=== PATIENT | female | born 1960 | race Caucasian/White ===

== ENCOUNTER → 2018-03-14 12:08 | Outpatient (CLI) | payer MEDICAID, SELFPAY ==
--- NOTE | 2018-03-14 12:12 | RAD_ITS ---
STUDY: X-RAY - LUMBAR SPINE REASON FOR EXAM: Female, 57 years old. Back pain. TECHNIQUE: 5 view(s) of the lumbar spine were obtained. COMPARISON: None FINDINGS: Alignment is normal. No evidence of an acute fracture. Mild anterior wedging T10, T11 and T12 which are probably old. Disc space narrowing L3-4 and L4-5. Facet hypertrophy L4-5 and L5-S1. Small marginal osteophytes at multiple levels in the lower lumbar spine. Laminectomies at multiple levels in the lower lumbar spine. Surgical clips right upper quadrant. Lobulated 1.7 x 1.1 cm calcification right lower quadrant possibly representing a right renal calculus. RAD/L/S Spine Min 4 Views IMPRESSION: Multilevel degenerative and postoperative changes of the lower lumbar spine. Possible 1.7 cm right renal calculus. Electronically Signed: Morris Suarez MD at 7:01 EDT , Service support ,
== END ==
PROVIDERS: Family Provider Family Medicine; PCP Family Medicine; Referring Provider Family Medicine; Visit Provider Family Medicine
DX: M54.41 Lumbago with sciatica, right side (principal); G89.29 Other chronic pain
CPT/HCPCS: 72110

== ENCOUNTER → 2018-08-22 06:17 | Outpatient (CLI) | payer MEDICAID, SELFPAY ==
--- NOTE | 2018-08-22 12:30 | NEURO ---
NCS and/or EMG Patient Report Ordering Doctor: Veronica Gomez DATE OF SERVICE: 08/22/18 Maryjane Atkinson is a 57-year-old female presents for electrodiagnostic testing of the right lower limb. She has complaints of low back pain with radiation into the right leg. She reports numbness and tingling. Electrodiagnostic findings: Right peroneal motor nerve temperature is normal distal latency, amplitude and conduction velocity. Normal right tibial motor response. Normal right tibial and peroneal F-wave. H reflex normal bilaterally. Sensory responses are within normal limits. Needle EMG testing shows no evidence of denervation in any muscles tested. Motor unit action potentials are of normal amplitude and duration. Electrodiagnostic impression: This is a normal electrodiagnostic study of the right lower limb. There is no electrodiagnostic evidence for peripheral neuropathy or lumbosacral radiculopathy. If there are any further questions, please do not hesitate to contact me.
== END ==
PROVIDERS: Family Provider Family Medicine; PCP Family Medicine; Referring Provider Family Medicine; Visit Provider Family Medicine
DX: M54.41 Lumbago with sciatica, right side (principal); G89.29 Other chronic pain
CPT/HCPCS: 95886; 95910

== ENCOUNTER 2019-01-09 09:38 | Observation (INO) | payer MEDICAID, SELFPAY ==
[2019-01-09 09:40] VITALS: BP 116/75; PULSE 107; RESP 18; TEMP 36.9; O2SAT 97; BMI 19.0
--- NOTE | 2019-01-09 09:50 | CT_ITS ---
STUDY: CT ABDOMEN AND PELVIS WITH CONTRAST REASON FOR EXAM: Female, 58 years old. Recent colonoscopy. Weakness and chills and pain. RADIATION DOSAGE (If Supplied By Facility): CTDIvol = ( 9.61 ) mGy, DLP = ( 290.04 ) mGycm TECHNIQUE: Transaxial images were obtained from the dome of the diaphragm to the symphysis pubis with oral contrast. 100ML IV/Oral Isovue 300 was administered. Sagittal and coronal images were reconstructed. Individualized dose optimization techniques were used for this CT. COMPARISON: None. FINDINGS: Increased markings at the lung bases suggesting bibasilar atelectasis. The visualized portions of the heart are within normal limits. Scattered small hepatic cysts. There is a 1.5 cm x 1.4 cm rounded calcification in the lower aspect of the liver. This may represent a retained gallstone during cholecystectomy. Normal gallbladder and extrahepatic biliary system. Normal spleen. Normal pancreas. There is a small, circumscribed, smooth, low attenuation left adrenal mass, consistent with an adrenal adenoma. This measures 1.3 cm. Normal right adrenal gland. Normal right kidney. There is a 7.6 cm x 6.4 cm cyst in the upper pole of the left kidney. There is also evidence of a 2.4 cm x 2.3 cm cyst along the anterior lateral aspect of the left kidney. There is a small hiatal hernia. Gastric wall thickening suggestive of gastritis. Normal small intestine. Diffuse circumferential wall thickening of the left hemicolon suggestive of a colitis with increased markings in the surrounding peritoneal fat. There are surgical clips in the region of the appendix consistent with a prior appendectomy. Normal abdominal aorta. Normal inferior vena cava. Normal retroperitoneum. Normal urinary bladder. There is absence of the uterus consistent with a prior hysterectomy. Normal abdominal wall. There are diffuse degenerative changes of the visualized lumbar spine. CT/Abdomen/Pelvis WITH Contrast IMPRESSION: Findings suggestive of gastritis as well as colitis of the left hemicolon are Status post cholecystectomy with the findings suggestive of debris retained gallstone in the right upper quadrant. Bibasilar atelectasis. Electronically Signed: Nayan Ross, at 12:21 EDT , Service support ,
[2019-01-09] MEDS: Ondansetron 4 MG/2 ML Vial IV (10:11)
[2019-01-09] MEDS: HYDROmorphone 1 MG/ML Syringe IV ×3 (10:11→22:36)
[2019-01-09] MEDS: 0.9% Normal Saline 1,000 ML 1000 ML IV (10:12)
--- NOTE | 2019-01-09 10:12 | ED.VISSUMM ---
- ER Visit Summary Date of Service: 01/09/19 Chief Complaint: Abdominal pain History of Present Illness: The patient is a 58 F with diffuse abdominal pain. She had a colonoscopy yesterday by Dr. Nickerson at . This was a screening colonoscopy, her second. One polyp was removed. She had no further issues other than waking up once during anesthesia. Today she reports increased and diffuse abdominal pain. She is not passing bowel movements or gas. She feels achy and has a headache. Denies vomiting. Denies fever, but she feels hot and has chills. Physical Examination: Afebrile and vital signs unremarkable except for heart rate 107. Heart regular. Lungs clear. Abdomen diffusely tender. No guarding or rebound. Mild distention. Skin appears normal. Test Results: Labs, urinalysis, CT pending. Emergency Department Course and Treatment: Patient treated with Dilaudid, Zofran, and fluids while awaiting results of the imaging and laboratory studies. White count 24.9. The remainder of her blood work was all fairly unremarkable. Cultures are pending. CT showed findings concerning for gastritis and colitis as well as postoperative changes. No perforation noted. Patient was discussed with Dr. Nickerson. He did not expect these findings. He suggested that she may have some irritation from the bowel prep. He said the colonoscopy was uneventful. She had 2 small polyps and he did not anticipate any complications from the removal. He advised Cipro and Betsey. He would follow-up with the patient has an outpatient. I reevaluated the patient. She had continued pain and was not passing gas. He said that she could be admitted here for antibiotics and pain meds if we thought it was appropriate. I spoke with the hospitalist who will admit for further care. Treatment Plan: As above Disposition: Admit Impression: 1. Colitis 2. Leukocytosis This note was generated with [employer] dictation software. It may contain incorrect words, spelling, and punctuation that were not noted in review of the chart prior to signing ED Disposition - Plan for ED Patient: Referrals: Veronica Gomez DO [Primary Care Provider] -
[2019-01-09 10:21] VITALS: BP 116/75; PULSE 107; RESP 18; TEMP 36.9; O2SAT 97
[2019-01-09 10:23] LABS: Bacteria 0 SEEN /hpf (None Seen); Mucous, Urine 0 SEEN /hpf (<or=2+); Red Blood Cells-Urine 0 SEEN /hpf (0-5)
[2019-01-09 10:34] LABS: Absolute Lymphocyte Count 1.29 X10^3/uL (0.83-4.51); Absolute Neutrophil Count 22.1 X10^3/uL (2.0-7.7); Basophil# 0.05 X10^3/uL; Basophil% 0.2 % (0-1); Eosinophil# 0.01 X10^3/uL; Hemoglobin 13.7 g/dL (12.0-15.0); Lymphocyte # 1.29 X10^3/ul (4.0); Lymphocyte % 5.2 % (19-41); Mean Corp Hgb Conc 34.3 g/dL (32-36); Mean Corpuscular Hgb 31.2 pg (27.0-32.0); Mean Corpuscular Volume 91.1 fL (81-99); Monocyte# 1.36 X10^3/uL; Monocyte% 5.5 % (0-10); NRBC Flagged by Analyzer 0 % (0-5); Neutrophil # 22.06 X10^3/uL (2.7-7.7); Neutrophil % 88.5 % (47-70); POSITIVE DIFFERENTIAL YES; Platelet Count 253 K/mm3 (150-450); RBC Distribution Width CV 13.2 % (11.6-14.6); RBC Distribution Width SD 44.7 fl (35.1-43.9); Red Blood Count 4.39 M/mm3 (4.2-5.4); White Blood Count 24.9 K/mm3 (4.4-11.0)
[2019-01-09 10:34] LABS: Color, Urine Yellow (Yellow); Glucose, Dipstick Normal (Normal); Ketone-Dipstick Negative (Negative); Leukocyte Esterase-Dipstick 25 /ul (Negative); Nitrite-Dipstick Negative (Negative); Occult Blood-Urine 10 /ul (Negative); Protein-Dipstick 30 mg/dl (Negative); Specific Gravity, Urine 1.015 (1.002-1.030); Urine Bilirubin Dipstick Negative (Negative); Urine Clarity Clear (Clear); Urine Urobilinogen Normal (Normal)
[2019-01-09 10:37] LABS: ALB/GLOB Ratio 0.9 RATIO (0.9-2.4); AST(SGOT) 14 U/L (15-37); Alanine Aminotransfer ALT/SGPT 17 U/L (13-56); Albumin, Serum 3.2 g/dL (3.2-5.0); Alkaline Phosphatase 73 U/L (45-117); Anion Gap 6 (5-15); BUN 10 mg/dL (7-18); BUN/Creat Ratio 17.3 RATIO (10-20); Calcium,Total 8.8 mg/dL (8.5-10.1); Chloride 113 mmol/L (98-107); Creatinine, Serum 0.58 mg/dL (0.55-1.02); Differential Indicated SCAN CRITERIA MET; EST Glomerular Filtration Rate 114 mL/min (>60); Est Glom Filt Rate - Afr Amer 138 mL/min (>60); Globulin 3.6 g/dL (2.2-4.2); Glucose 106 mg/dL (74-106); Lipase 77 U/L (73-393); Potassium 3.5 mmol/L (3.5-5.1); Protein, Total 6.8 g/dL (6.4-8.2); Sodium Level 140 mmol/L (136-145)
[2019-01-09 10:43] LABS: Squamous Epithelial Cells - UA 0-5 SEEN /hpf (5-10); White Blood Cells 0-5 SEEN /hpf (0-5)
[2019-01-09 11:01] VITALS: BP 103/65; PULSE 84; RESP 18; TEMP 37.3; O2SAT 98
[2019-01-09 11:12] VITALS: BP 103/65; PULSE 84; RESP 18; TEMP 37.3; O2SAT 98
[2019-01-09 11:22] LABS: Hypersegmented Neutrophils RARE; Platelet Estimate ADEQUATE (ADEQ); Red Cell Morphology NORM C+C NORMAL (NORM C&C)
[2019-01-09 11:33] LABS: Lactic Acid 0.6 mmol/L (0.4-2.0)
--- NOTE | 2019-01-09 13:14 | HP.PCM_ITS ---
Problem List (1) Abdominal pain Status: Acute (2) S/P colonoscopy Status: Acute (3) ADHD Status: Chronic (4) Bipolar disorder Status: Chronic (5) Depression Status: Chronic (6) Tobacco dependence Status: Chronic History of Present Illness Date of Admission: 01/09/19 Chief Complaint: Abdominal pain The patient is a 58 year old F who presents with abdominal pain. Patient states she had colonoscopy on 01/08/2019 at the facility in [place]. States she went to feeling bloated. She subsequently developed more pain. She also notes that she had more positive in regards of bowel movement following the colonoscopy. She subsequently presented to the emergency department imaging studies obtained demonstrated Findings suggestive of gastritis as well as colitis of the left hemicolon patient's head correction officer in [place] was notified from the emergency department who recommended for patient to be discharged home on antibiotics with subsequent follow-up as outpatient however Past Medical History Past Medical History (Chronic Problems): Chronic Problems ADHD (Chronic) Bipolar disorder (Chronic) Depression (Chronic) Tobacco dependence (Chronic) Allergies morphine Allergy (Verified 01/09/19 09:40) Itching procaine [From Novocain] Allergy (Verified 01/09/19 09:40) Itching Home Medications: Ambulatory Orders Medication Instructions Recorded Asenapine Maleate [Saphris] 2.5 mg PO ACHS 01/09/19 Dextroamphetamine/Amphetamine 20 mg PO BID 01/09/19 [Dextroamp-Amphet ER 20 mg Cap] Equetro 200 mg PO BID 01/09/19 Omeprazole 20 mg PO BID 01/09/19 Surgical History: cholecystectomy Smoking Status: Current every day smoker - *Family History Maternal History Items: Diabetes, Heart Disease Paternal History Items: Heart Disease Review of Systems Constitutional: Denies: Anorexia, Chills, Fever, Night Sweats, Weight Change HEENT: Denies: Head Aches, Sinus Congestion, Sinus Drainage Cardiovascular: Denies: Chest Pain, Orthopnea, Palpitations, Paroxysmal Noc. Dyspnea Respiratory: Denies: Cough, Shortness of breath at rest, Shortness of breath upon exertion, Sputum production Gastrointestinal: Reports: Abdominal Pain, Constipation. Denies: Hematemesis, Hematochezia, Nausea, Melena, Vomiting Genitourinary: Denies: Dysuria, Frequency, Hematuria, Urgency Musculoskeletal: Denies: Joint Pain, Joint Tenderness Skin: Denies: Rash Neurological: Denies: Focal weakness, Numbness, Tingling Psychiatric: Denies: Homicidal Ideations, Suicidal Ideations Hematologic/ Lymphatic: Denies: Easy Bruising, Easy Bleeding VTE Information - Inpt Only VTE Present on Admission: No VTE Mechan Device Prophylaxis: None VTE Pharm Prophylaxis ordered?: Yes Patient Problems: Active and Suspected Problems Abdominal pain (Acute) S/P colonoscopy (Acute) Objective: GENERAL: cooperative HEENT: Atraumatic; EYES; Anicteric, Normal Conjunctiva NECK; supple, normal thyroid, RESPIRATORY: Diminished to auscultation CARDIOVASCULAR: Regular S1 S2, GI: Distended but tender in the epigastrium : No Renal angle tenderness; EXTREMITIES: No edema, no clubbing, MUSCULOSKELETAL: No Joint Tenderness; NEURO: Awake; no lateralizing signs. SKIN: No Rash PSYCH; Normal affect - Physical Exam Vital Signs Temp Pulse Resp BP Pulse Ox 99.2 F H 84 18 103/65 98 01/09/19 11:12 01/09/19 11:12 01/09/19 11:12 01/09/19 11:12 01/09/19 11:12 Oxygen Delivery Method Room Air Weight: 47.174 kg Body Mass Index (BMI) 19.0 Laboratory Tests Past 24 Hrs 01/09/19 01/09/19 01/09/19 10:00 10:00 10:19 WBC 24.9 H RBC 4.39 Hgb 13.7 Hct 40.0 MCV 91.1 MCH 31.2 MCHC 34.3 RDW Std Deviation 44.7 H RDW Coeff of Mar[place] 13.2 Plt Count 253 MPV 10.0 Immature Gran % (Auto) 0.600 Neut % (Auto) 88.5 H Lymph % (Auto) 5.2 L [place] % (Auto) 5.5 Eos % (Auto) 0.0 Baso % (Auto) 0.2 Absolute Neuts (auto) 22.1 H Absolute Lymphs (auto) 1.29 Nucleated RBC % 0 Diff Path Review May foll Hypersegmented Neuts RARE Platelet Estimate ADEQUATE RBC Morphology NORM C+C Sodium 140 Potassium 3.5 Chloride 113 H Carbon Dioxide 21.0 Anion Gap 6 BUN 10 Creatinine 0.58 Estim Creat Clear Calc 79.70 Est GFR (MDRD) Af Amer 138 Est GFR (MDRD) Non-Af 114 BUN/Creatinine Ratio 17.3 Glucose 106 Lactic Acid Calcium 8.8 Total Bilirubin 0.40 AST 14 L ALT 17 Alkaline Phosphatase 73 Total Protein 6.8 Albumin 3.2 Globulin 3.6 Albumin/Globulin Ratio 0.9 Lipase 77 Urine Color Yellow Urine Clarity Clear Urine pH 6.0 Ur Specific [place] 1.015 Urine Protein 30 H Urine Glucose (UA) Normal Urine Ketones Negative Urine Occult Blood 10 H Urine Nitrite Negative Urine Bilirubin Negative Urine Urobilinogen Normal Ur Leukocyte Esterase 25 H Urine RBC 0 SEEN Urine WBC 0-5 SEEN Ur Squamous Epith Cells 0-5 SEEN Urine Bacteria 0 SEEN Urine Mucus 0 SEEN 01/09/19 10:55 WBC RBC Hgb Hct MCV MCH MCHC RDW Std Deviation RDW Coeff of [place] Plt Count MPV Immature Gran % (Auto) Neut % (Auto) Lymph % (Auto) [place] % (Auto) Eos % (Auto) Baso % (Auto) Absolute Neuts (auto) Absolute Lymphs (auto) Nucleated RBC % Diff Path Review Hypersegmented Neuts Platelet Estimate RBC Morphology Sodium Potassium Chloride Carbon Dioxide Anion Gap BUN Creatinine Estim Creat Clear Calc Est GFR (MDRD) Af Amer Est GFR (MDRD) Non-Af BUN/Creatinine Ratio Glucose Lactic Acid 0.6 Calcium Total Bilirubin AST ALT Alkaline Phosphatase Total Protein Albumin Globulin Albumin/Globulin Ratio Lipase Urine Color Urine Clarity Urine pH Ur Specific [place] Urine Protein Urine Glucose (UA) Urine Ketones Urine Occult Blood Urine Nitrite Urine Bilirubin Urine Urobilinogen Ur Leukocyte Esterase Urine RBC Urine WBC Ur Squamous Epith Cells Urine Bacteria Urine Mucus Assessment/Plan All Active Problems Abdominal pain (Acute) S/P colonoscopy (Acute) Patient is a 58-year-old lady presenting with abdominal pain 1 day after undergoing colonoscopy 1. Abdominal pain abdominal pain status post colonoscopy on 01/08/2019. Imaging studies obtained on admission did not show any evidence of perforation there was however report of possible colitis. Admitted to a regular nursing floor for symptomatic management. Started patient on Cipro and Flagyl in addition to pain meds, IV fluids 2. GERD there was report of possible gastritis on imaging studies obtained on admission, patient is on PPI did continue 3. Bipolar disorder did continue patient psychotropic medication 4. Depression continue home meds 5. ADHD patient is on Adderall discontinued 6. Tobacco dependence counseled on cessation, offered nicotine patch for tobacco cravings 7. DVT prophylaxis SC Lovenox Code Visit OBSV E&M: 11522 Initial observation care L3
[2019-01-09] MEDS: metroNIDAZOLE 500 MG/100 ML BAG 100 MG IV ×2 (13:47→23:32)
[2019-01-09 14:26] VITALS: BMI 20.5
[2019-01-09 14:27] VITALS: BP 106/70; PULSE 80; RESP 16; TEMP 37.1; O2SAT 98
[2019-01-09 14:32] VITALS: BMI 20.5
[2019-01-09] MEDS: Ciprofloxacin 400 MG/200 ML BAG 200 MG IV ×2 (14:55→22:19)
[2019-01-09 15:29] LABS: Lipase 61 U/L (73-393)
[2019-01-09] MEDS: oxyCODONE 5 MG Tablet 10 MG PO ×2 (15:41→20:00)
[2019-01-09 19:31] VITALS: PULSE 78; RESP 18; TEMP 36.5; O2SAT 99
[2019-01-09] MEDS: Pantoprazole Sodium 20 MG Tablet PO (22:18)
[2019-01-09] MEDS: Senna/Docusate Sodium 1 Tablet 2 TABLET PO (22:18)
[2019-01-10 02:22] VITALS: BP 110/76; PULSE 80; RESP 16; TEMP 36.8; O2SAT 98
[2019-01-10] MEDS: oxyCODONE 5 MG Tablet 10 MG PO ×2 (02:34→07:53)
--- NOTE | 2019-01-10 05:55 | RAD_ITS ---
STUDY: X-RAY - ABDOMEN/PELVIS REASON FOR EXAM: Female, 58 years old. Abdominal pain. TECHNIQUE: Single AP view of the abdomen / pelvis. COMPARISON: None. FINDINGS: Minimal increased markings at the left lung base. Oral contrast is seen within the colon. Surgical clips are seen in the right upper quadrant suggestive of a prior cholecystectomy. The visualized liver, spleen and kidneys are grossly normal in size and morphology. Normal soft tissue structures. There are diffuse degenerative changes of the visualized lumbar spine. Mild degree of levoscoliosis. RAD/Abdomen Single View IMPRESSION: Oral contrast is seen within the colon. Electronically Signed: Nayan Ross, at 12:28 EDT , Service support ,
[2019-01-10 06:04] LABS: Absolute Lymphocyte Count 2.29 X10^3/uL (0.83-4.51); Absolute Neutrophil Count 8.6 X10^3/uL (2.0-7.7); Basophil# 0.04 X10^3/uL; Basophil% 0.3 % (0-1); Eosinophil# 0.27 X10^3/uL; Eosinophils% 2.2 % (0-5); Hematocrit 35.7 % (37-47); Lymphocyte # 2.29 X10^3/ul (4.0); Mean Corp Hgb Conc 33.6 g/dL (32-36); Mean Corpuscular Hgb 31.2 pg (27.0-32.0); Mean Corpuscular Volume 92.7 fL (81-99); Mean Platelet Vol. 9.7 fl (6.2-12.0); Monocyte# 0.83 X10^3/uL; Monocyte% 6.9 % (0-10); NRBC Flagged by Analyzer 0 % (0-5); Neutrophil # 8.56 X10^3/uL (2.7-7.7); Neutrophil % 71.2 % (47-70); Platelet Count 205 K/mm3 (150-450); RBC Distribution Width CV 13.2 % (11.6-14.6); RBC Distribution Width SD 45.1 fl (35.1-43.9); Red Blood Count 3.85 M/mm3 (4.2-5.4)
[2019-01-10] MEDS: metroNIDAZOLE 500 MG/100 ML BAG 100 MG IV (06:17)
[2019-01-10 06:28] LABS: Anion Gap 6 (5-15); BUN 4 mg/dL (7-18); Calcium,Total 8.5 mg/dL (8.5-10.1); Chloride 111 mmol/L (98-107); EST Glomerular Filtration Rate 134 mL/min (>60); Est Glom Filt Rate - Afr Amer 162 mL/min (>60); Estimated Creatinine Clearance 98.18 ml/min; Glucose 81 mg/dL (74-106); Magnesium 1.7 mg/dL (1.6-2.6); Potassium 3.8 mmol/L (3.5-5.1); Sodium Level 142 mmol/L (136-145)
[2019-01-10 07:34] VITALS: BP 119/75; PULSE 64; RESP 16; TEMP 36.7; O2SAT 100
--- NOTE | 2019-01-10 09:05 | DCINST_ITS ---
- Discharge Diagnoses Current Active Problems: Current Active and Chronic Problems Abdominal pain (Acute) ADHD (Chronic) Bipolar disorder (Chronic) Depression (Chronic) Tobacco dependence (Chronic) S/P colonoscopy (Acute) You will use the following diet at home:: No restrictions Your food should be the consistency of: Regular Allergies/Adverse Reactions: Allergies morphine Allergy (Verified 01/09/19 09:40) Itching procaine [From Novocain] Allergy (Verified 01/09/19 09:40) Itching Medications to take at Discharge Asenapine Maleate [Saphris] 2.5 mg PO QHS 01/09/19 Dextroamphetamine/Amphetamine [Dextroamp-Amphet ER 20 mg Cap] 20 mg PO BID 01/09/19 Equetro 200 mg PO BID 01/09/19 Omeprazole 40 mg PO DAILY 01/09/19 Ciprofloxacin [Cipro] 500 mg PO BID #10 tab 01/10/19 metroNIDAZOLE [Flagyl] 500 mg PO Q8H #15 tab 01/10/19 The following prescriptions were given: Ciprofloxacin [Cipro] 500 mg PO BID #10 tab Transmission Status: Pending to [id number] metroNIDAZOLE [Flagyl] 500 mg PO Q8H #15 tab Transmission Status: Pending to [id number] Primary Care Physician: Veronica Gomez DO [Primary Care Provider] - Please follow up with your Primary Care Physician in: in 5-7 days Test Results: Test results from this visit will be discussed in further detail at your follow- up appointment, if applicable. Please Follow Up With: YOUR HUMAN RESOURCES SUPERVISOR When: IN 1-2 DAYS Proposed Discharge Date: 01/10/19
--- NOTE | 2019-01-10 09:07 | PCM.DC.SUM ---
Discharge Date and Diagnosis - Problem List Patient Problems: Active and Suspected Problems Abdominal pain (Acute) S/P colonoscopy (Acute) Date of Admission: 01/09/19 Date of Discharge: 01/10/19 - Primary Discharge Diagnosis Active and Suspected Problems Abdominal pain (Acute) S/P colonoscopy (Acute) - Secondary Discharge Diagnosis Chronic Problems ADHD (Chronic) Bipolar disorder (Chronic) Depression (Chronic) Tobacco dependence (Chronic) Hospital Course and Treatment Imaging Results: Clinical Impression(s) from Imaging Studies Abdomen/Pelvis CT 01/09/19 09:50 IMPRESSION: Findings suggestive of gastritis as well as colitis of the left hemicolon are Status post cholecystectomy with the findings suggestive of debris retained gallstone in the right upper quadrant. Bibasilar atelectasis. Electronically Signed: Nayan Cody, at 12:21 EDT , Service support , Summary of Care Provided: Patient is a 58-year-old lady presenting with abdominal pain 1 day after undergoing colonoscopy 1. Abdominal pain abdominal pain status post colonoscopy on 01/08/2019. Imaging studies obtained on admission did not show any evidence of perforation there was however report of possible colitis. Admitted to a regular nursing floor for symptomatic management. Started patient on Cipro and Flagyl in addition to pain meds, IV fluids patient did improve with symptomatic management discharge the day after admission instructed to follow-up with her founder and chief technical officer in 1 to 2 days for subsequent care 2. GERD there was report of possible gastritis on imaging studies obtained on admission, patient is on PPI did continue 3. Bipolar disorder did continue patient psychotropic medication 4. Depression continue home meds 5. ADHD patient is on Adderall discontinued 6. Tobacco dependence counseled on cessation, offered nicotine patch for tobacco cravings 7. DVT prophylaxis SC Lovenox Patient Problems: Active and Suspected Problems Abdominal pain (Acute) S/P colonoscopy (Acute) Objective: GENERAL: cooperative HEENT: Atraumatic; moist oral mucosa EYES; Anicteric, Normal Conjunctiva NECK; supple, normal thyroid, no distended JVD. RESPIRATORY: Diminished to auscultation bilaterally, CARDIOVASCULAR: Regular S1 S2, no audible murmurs GI: soft, non-tender, normoactive bowel sounds, : No Renal angle tenderness; EXTREMITIES: No edema, no clubbing, no cyanosis. MUSCULOSKELETAL: No Joint Tenderness; no muscle waisting NEURO: Awake; no lateralizing signs. SKIN: No Rash PSYCH; Normal affect - Physical Exam Vital Signs Temp Pulse Resp BP Pulse Ox 98.1 F 64 16 119/75 100 01/10/19 07:34 01/10/19 07:34 01/10/19 07:34 01/10/19 07:34 01/10/19 07:34 Oxygen Delivery Method Room Air Weight: 50.802 kg Body Mass Index (BMI) 20.5 Intake and Output for Last 24 Hours 01/08/19 01/09/19 01/10/19 23:59 23:59 23:59 Intake Total 1916 Balance 1916 Laboratory Tests Past 24 Hrs 01/09/19 01/09/19 01/09/19 10:00 10:00 10:19 WBC 24.9 H RBC 4.39 Hgb 13.7 Hct 40.0 MCV 91.1 MCH 31.2 MCHC 34.3 RDW Std Deviation 44.7 H RDW Coeff of Mar[place] 13.2 Plt Count 253 MPV 10.0 Immature Gran % (Auto) 0.600 Neut % (Auto) 88.5 H Lymph % (Auto) 5.2 L [place] % (Auto) 5.5 Eos % (Auto) 0.0 Baso % (Auto) 0.2 Absolute Neuts (auto) 22.1 H Absolute Lymphs (auto) 1.29 Nucleated RBC % 0 Diff Path Review May foll Hypersegmented Neuts RARE Platelet Estimate ADEQUATE RBC Morphology NORM C+C Sodium 140 Potassium 3.5 Chloride 113 H Carbon Dioxide 21.0 Anion Gap 6 BUN 10 Creatinine 0.58 Estim Creat Clear Calc 79.70 Est GFR (MDRD) Af Amer 138 Est GFR (MDRD) Non-Af 114 BUN/Creatinine Ratio 17.3 Glucose 106 Lactic Acid Calcium 8.8 Magnesium Total Bilirubin 0.40 AST 14 L ALT 17 Alkaline Phosphatase 73 Total Protein 6.8 Albumin 3.2 Globulin 3.6 Albumin/Globulin Ratio 0.9 Lipase 77 Urine Color Yellow Urine Clarity Clear Urine pH 6.0 Ur Specific [place] 1.015 Urine Protein 30 H Urine Glucose (UA) Normal Urine Ketones Negative Urine Occult Blood 10 H Urine Nitrite Negative Urine Bilirubin Negative Urine Urobilinogen Normal Ur Leukocyte Esterase 25 H Urine RBC 0 SEEN Urine WBC 0-5 SEEN Ur Squamous Epith Cells 0-5 SEEN Urine Bacteria 0 SEEN Urine Mucus 0 SEEN 01/09/19 01/09/19 01/10/19 10:55 15:03 05:40 WBC 12.0 H RBC 3.85 L Hgb 12.0 Hct 35.7 L MCV 92.7 MCH 31.2 MCHC 33.6 RDW Std Deviation 45.1 H RDW Coeff of [place] 13.2 Plt Count 205 MPV 9.7 Immature Gran % (Auto) 0.400 Neut % (Auto) 71.2 H Lymph % (Auto) 19.0 [place] % (Auto) 6.9 Eos % (Auto) 2.2 Baso % (Auto) 0.3 Absolute Neuts (auto) 8.6 H Absolute Lymphs (auto) 2.29 Nucleated RBC % 0 Diff Path Review Hypersegmented Neuts Platelet Estimate RBC Morphology Sodium Potassium Chloride Carbon Dioxide Anion Gap BUN Creatinine Estim Creat Clear Calc Est GFR (MDRD) Af Amer Est GFR (MDRD) Non-Af BUN/Creatinine Ratio Glucose Lactic Acid 0.6 Calcium Magnesium Total Bilirubin AST ALT Alkaline Phosphatase Total Protein Albumin Globulin Albumin/Globulin Ratio Lipase 61 L Urine Color Urine Clarity Urine pH Ur Specific [place] Urine Protein Urine Glucose (UA) Urine Ketones Urine Occult Blood Urine Nitrite Urine Bilirubin Urine Urobilinogen Ur Leukocyte Esterase Urine RBC Urine WBC Ur Squamous Epith Cells Urine Bacteria Urine Mucus 01/10/19 05:40 WBC RBC Hgb Hct MCV MCH MCHC RDW Std Deviation RDW Coeff of [place] Plt Count MPV Immature Gran % (Auto) Neut % (Auto) Lymph % (Auto) [place] % (Auto) Eos % (Auto) Baso % (Auto) Absolute Neuts (auto) Absolute Lymphs (auto) Nucleated RBC % Diff Path Review Hypersegmented Neuts Platelet Estimate RBC Morphology Sodium 142 Potassium 3.8 Chloride 111 H Carbon Dioxide 25.0 Anion Gap 6 BUN 4 L Creatinine 0.50 L Estim Creat Clear Calc 98.18 Est GFR (MDRD) Af Amer 162 Est GFR (MDRD) Non-Af 134 BUN/Creatinine Ratio 8.0 L Glucose 81 Lactic Acid Calcium 8.5 Magnesium 1.7 Total Bilirubin AST ALT Alkaline Phosphatase Total Protein Albumin Globulin Albumin/Globulin Ratio Lipase Urine Color Urine Clarity Urine pH Ur Specific [place] Urine Protein Urine Glucose (UA) Urine Ketones Urine Occult Blood Urine Nitrite Urine Bilirubin Urine Urobilinogen Ur Leukocyte Esterase Urine RBC Urine WBC Ur Squamous Epith Cells Urine Bacteria Urine Mucus Discharge Diet: No Restrictions Discharge Activity: Return to Normal Activity Home Medications: Medications to take at Discharge Asenapine Maleate [Saphris] 2.5 mg PO QHS 01/09/19 Dextroamphetamine/Amphetamine [Dextroamp-Amphet ER 20 mg Cap] 20 mg PO BID 01/09/19 Equetro 200 mg PO BID 01/09/19 Omeprazole 40 mg PO DAILY 01/09/19 Ciprofloxacin [Cipro] 500 mg PO BID #10 tab 01/10/19 metroNIDAZOLE [Flagyl] 500 mg PO Q8H #15 tab 01/10/19 Following Prescrptions Were Given to Patient: Ciprofloxacin [Cipro] 500 mg PO BID #10 tab Transmission Status: [id number] metroNIDAZOLE [Flagyl] 500 mg PO Q8H #15 tab Transmission Status: [id number] Primary Care Physician: Veronica Gomez DO [Primary Care Provider] - Please follow up with your Primary Care Physician in: in 5-7 days Please Follow Up With: YOUR BUILDING MANAGER When: IN 1-2 DAYS Disposition: Home Minutes spent on discharge:: 35 Medical Necessity - Tobacco Use Smoking Status: Current every day smoker Tobacco Use: Cigarettes, Vapor Meaningful Use Info Meaningful Use Diagnoses (Choose all that apply): None applicable Code Visit OBSV E&M: 94418 Observation care discharge
[2019-01-11 13:41] LABS: Pathologist Review Reviewed
== END 2019-01-10 11:25 | disposition home or self-care (01) ==
LOC: ED 10:04 → MS3 14:07
PROVIDERS: Admitting Provider Internal Medicine; Emergency Provider Emergency Medicine; Family Provider Family Medicine; PCP Family Medicine; Referring Provider Internal Medicine; Visit Provider Internal Medicine
DX: R10.9 Unspecified abdominal pain (principal); F31.9 Bipolar disorder, unspecified; F90.9 Attention-deficit hyperactivity disorder, unspecified type; Z79.899 Other long term (current) drug therapy; F17.210 Nicotine dependence, cigarettes, uncomplicated
CPT/HCPCS: 36415; 74018; 74177; 80048; 80053; 81001; 83605; 83690; 83735; 85025; 87040; 96361; 96365; 96366; 96367; 96375; 96376; 99218; 99284; J7030; Q9967; A4216; G0378; J0744; J2405

== ENCOUNTER → 2019-04-02 | Outpatient (CLI) | payer MEDICAID, SELFPAY ==
[2019-04-02 12:37] VITALS: BMI 20.5
--- NOTE | 2019-04-02 12:49 | RAD_ITS ---
STUDY: X-RAY - LUMBAR SPINE REASON FOR EXAM: Female, 58 years old. Low back pain TECHNIQUE: 4 view(s) of the lumbar spine were obtained. COMPARISON: Prior study of 03/14/2018 FINDINGS: Normal lumbar lordosis. Is a mild thoracolumbar levoscoliosis. There is a normal alignment of the vertebrae. There is mild diffuse endplate spondylosis of the lumbar vertebrae. There is severe narrowing of the L3-4 and L4-5 disc spaces. There are status post laminectomy changes at L3, L4, and L5. There is a 2.1 cm calcification of the mid right abdomen which may represent a renal calculus. Surgical clips are seen in the right upper quadrant of the abdomen consistent with cholecystectomy. RAD/L/S Spine Min 4 Views IMPRESSION: Postsurgical and degenerative changes of the lumbar spine appearing similar to the prior study. Electronically Signed: Seb Xie MD at 22:07 EDT , Service support ,
== END | disposition home or self-care (01) ==
LOC: HPRAD 12:49
PROVIDERS: Family Provider Family Medicine; PCP Family Medicine; Referring Provider Orthopaedic Surgery; Visit Provider Orthopaedic Surgery
DX: M54.5 Low back pain (principal)
CPT/HCPCS: 72110

== ENCOUNTER 2019-06-29 17:11 | Observation (INO) | payer MEDICAID, SELFPAY ==
[2019-04-02 12:37] VITALS: BMI 20.5
[2019-06-29] VITALS (7 sets, daily range): BP systolic 137–157; BP diastolic 83–107; PULSE 68–76; RESP 14–18; TEMP 36.1–36.7; O2SAT 96–97; BMI 20.5; BMI 21.3; BMI 21.4
--- NOTE | 2019-06-29 17:31 | EKG12_ITS ---
Test Reason : DIZZINESS Blood Pressure : / mmHG Vent. Rate : 067 BPM Atrial Rate : 067 BPM P-R Int : 178 ms QRS Dur : 084 ms QT Int : 404 ms P-R-T Axes : 080 064 075 degrees QTc Int : 426 ms Normal sinus rhythm Possible Left atrial enlargement Borderline ECG Confirmed by GURU RODRIGUEZ, TRACI ([id number]), legal editor ANITRA DUBOSE ([id number]) on 07/02/2019 10:00:22 AM Referred By: MARYSE Confirmed By:TRACI GARVEY MD
--- NOTE | 2019-06-29 17:35 | RAD_ITS ---
STUDY: X-RAY CHEST REASON FOR EXAM: Female, 58 years old. DIZZINESS TECHNIQUE: Single AP portable view of the chest. COMPARISON: None. FINDINGS: The lungs are clear and expanded. There is no demonstrated pleural abnormality. Normal size heart. Normal mediastinum and joao. Normal visualized pulmonary arteries. Normal visualized aortic arch and descending thoracic aorta. There are diffuse degenerative changes of the visualized thoracic spine. Normal visualized ribs, clavicles, and shoulders. There is no demonstrated abnormality of the visualized soft tissue structures of the upper abdomen. RAD/Chest 1 View (Portable) IMPRESSION: No acute chest disease. Electronically Signed: Russell Brandt MD at 18:01 EST , Service support ,
[2019-06-29 17:57] LABS: Absolute Lymphocyte Count 1.92 X10^3/uL (0.83-4.51); Absolute Neutrophil Count 5.7 X10^3/uL (2.0-7.7); Basophil# 0.03 X10^3/uL; Basophil% 0.4 % (0-1); Eosinophil# 0.14 X10^3/uL; Eosinophils% 1.7 % (0-5); Hematocrit 36.8 % (37-47); Hemoglobin 12.4 g/dL (12.0-15.0); Lymphocyte # 1.92 X10^3/ul (4.0); Lymphocyte % 23.2 % (19-41); Mean Corp Hgb Conc 33.7 g/dL (32-36); Mean Corpuscular Hgb 30.2 pg (27.0-32.0); Mean Corpuscular Volume 89.5 fL (81-99); Mean Platelet Vol. 8.5 fl (6.2-12.0); Monocyte# 0.48 X10^3/uL; Monocyte% 5.8 % (0-10); NRBC Flagged by Analyzer 0 % (0-5); Neutrophil # 5.68 X10^3/uL (2.7-7.7); Neutrophil % 68.4 % (47-70); Platelet Count 302 K/mm3 (150-450); RBC Distribution Width CV 13.2 % (11.6-14.6); RBC Distribution Width SD 43.5 fl (35.1-43.9); Red Blood Count 4.11 M/mm3 (4.2-5.4); White Blood Count 8.3 K/mm3 (4.4-11.0)
[2019-06-29] MEDS: 0.9% Normal Saline 1,000 ML 150 ML IV ×2 (18:00→23:56)
[2019-06-29 18:15] LABS: Anion Gap 5 (5-15); BUN 7 mg/dL (7-18); BUN/Creat Ratio 13.7 RATIO (10-20); Calcium,Total 8.4 mg/dL (8.5-10.1); Chloride 102 mmol/L (98-107); Creatinine, Serum 0.51 mg/dL (0.55-1.02); EST Glomerular Filtration Rate 132 mL/min (>60); Est Glom Filt Rate - Afr Amer 159 mL/min (>60); Estimated Creatinine Clearance 96.26 ml/min; Glucose 112 mg/dL (74-106); Potassium 3.8 mmol/L (3.5-5.1); Sodium Level 132 mmol/L (136-145)
[2019-06-29 18:48] LABS: Bacteria 0 SEEN /hpf (None Seen); Mucous, Urine 0 SEEN /hpf (<or=2+); Red Blood Cells-Urine 0 SEEN /hpf (0-5)
--- NOTE | 2019-06-29 18:48 | CT_ITS ---
STUDY: CT BRAIN WITHOUT CONTRAST REASON FOR EXAM: Female, 58 years old. LIGHTHEADED, OFF BALANCE, NAUSEA. RADIATION DOSAGE (If Supplied By Facility): CTDIvol = ( 44.99 ) mGy, DLP = ( 779.24 ) mGycm TECHNIQUE: Transaxial CT imaging of the brain was performed without administration of intravenous contrast material. Individualized dose optimization techniques were used for this CT. COMPARISON: 07/17/2010 FINDINGS: Normal soft tissue structures. Normal calvarium. Normal size ventricles and extra-axial spaces for the patient''s age. Normal white matter tracts of the cerebral hemispheres. Normal basal ganglia and thalami. Normal brainstem. Normal cerebellum. There is no intracranial hemorrhage. There are no findings of an acute ischemic infarction. Normal visualized paranasal sinuses. CT/Brain/Head without Contrast IMPRESSION: Normal unenhanced CT scan of the brain. Electronically Signed: Russell Brandt MD at 19:25 EST , Service support ,
[2019-06-29 18:50] LABS: Carbamazepine (Tegretol) 17.9 ug/mL (4.0-12.0)
[2019-06-29 18:51] LABS: Color, Urine Yellow (Yellow); Glucose, Dipstick Normal (Normal); Ketone-Dipstick Negative (Negative); Leukocyte Esterase-Dipstick 25 /ul (Negative); Nitrite-Dipstick Negative (Negative); Occult Blood-Urine Negative /ul (Negative); Protein-Dipstick Negative (Negative); Urine Bilirubin Dipstick Negative (Negative); Urine Clarity Sl. Cloudy (Clear); Urine Urobilinogen Normal (Normal)
[2019-06-29 19:00] LABS: Squamous Epithelial Cells - UA 5-10 SEEN /hpf (5-10); White Blood Cells 0-5 SEEN /hpf (0-5)
--- NOTE | 2019-06-29 19:15 | HP.PCM_ITS ---
Problem List (1) Carbamazepine toxicity Status: Acute Qualifiers: Encounter type: initial encounter Injury intent: accidental or unintentional Qualified Code(s): T42.1X1A - Poisoning by iminostilbenes, accidental (unintentional), initial encounter (2) Chronic obstructive pulmonary disease Status: Chronic Qualifiers: Emphysema type: unspecified (3) Hypertension Status: Chronic Qualifiers: Hypertension type: essential hypertension Qualified Code(s): I10 - Essential (primary) hypertension (4) Hyperlipidemia Status: Chronic Qualifiers: Hyperlipidemia type: unspecified Qualified Code(s): E78.5 - Hyperlipidemia, unspecified (5) ADHD Status: Chronic Qualifiers: Attention deficit-hyperactivity disorder type: unspecified Qualified Code(s): F90.9 - Attention-deficit hyperactivity disorder, unspecified type (6) Bipolar disorder Status: Chronic Qualifiers: Active/Remission status: remission status unspecified Qualified Code(s): F31.9 - Bipolar disorder, unspecified (7) Tobacco dependence Status: Chronic History of Present Illness Date of Admission: 06/29/19 Chief Complaint: Lightheaded, nauseated The patient is a 58 y/o F w/ PMHx: Chronic COPD, GERD, Anxiety and Depression/Bipolar disorder/ADHD, HTN, HLD, Tobacco use who presents to the [facility] ED on 06/29/19 with history of fatigue, malaise, lightheadedness, nauseated without emesis, feeling off balance today with recent tegretol increase for her anxiety and bipolar with transition to 300 mg BID which nearly doubled her intake. Patient notes that she only started this regimen x1 dose and had some mild lightheadedness preceding this more acute and pronounced onset. Patient with no recent illnesses, nausea, emesis, diarrhea preceding onset nor any upper respiratory infections. Daughter who is present and children currently healthy with no recent illness. Work-up in the ED included T 97, heart rate 76, BP 142/85, respiratory rate 16, 97% on room air, negative orthostatic vital signs, CBC unremarkable, BMP with sodium 132, BUN/creatinine 7/0.51, glucose 112, troponin less than 0.015, urinalysis unremarkable, carbamazepine level 17.9 with upper limit of normal 12, chest x-ray with no acute cardiopulmonary findings, CT head with no acute findings on preliminary evaluation but no final read, EKG without acute findings. In the ED patient ministered normal saline. Past Medical History Past Medical History (Chronic Problems): Chronic Problems ADHD (Chronic) Bipolar disorder (Chronic) Depression (Chronic) Tobacco dependence (Chronic) Chronic obstructive pulmonary disease (Chronic) Hypertension (Chronic) Hyperlipidemia (Chronic) Allergies morphine Allergy (Verified 06/29/19 17:14) Itching procaine [From Novocain] Allergy (Verified 06/29/19 17:14) Itching Home Medications: Ambulatory Orders Medication Instructions Recorded Dextroamphetamine/Amphetamine 20 mg PO BID 01/09/19 [Dextroamp-Amphet ER 20 mg Cap] Omeprazole 40 mg PO DAILY 01/09/19 metoprolol succinate 25 mg 25 mg PO DAILY #30 04/02/19 tablet,extended release 24 hr rosuvastatin 10 mg tablet 10 mg PO DAILY #30 04/02/19 ziprasidone HCl 20 mg capsule 20 mg PO QHS #30 04/02/19 ALPRAZolam [Xanax] 0.5 mg PO BID 06/29/19 Carbamazepine [Carbamazepine ER] 600 mg PO BID 06/29/19 Surgical History: cholecystectomy, - - Carpal tunnel repair bilaterally, trigger finger intervention, hysterectomy, cholecystectomy, appendectomy, lumbar back surgery x2, x3. 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 Smoking Status: Current every day smoker - Patient smokes approximately 1/2 pack/day cigarette tobacco usage since she was a teenager. Tobacco Use: Cigarettes Alcohol: None Drugs: None - *Family History Maternal History Items: Diabetes, High Cholesterol, Heart Disease - Patient notes a maternal family history of CAD, CABG x3 required., Hypertension Paternal History Items: High Cholesterol, Heart Disease - Patient notes paternal family history of CAD, CABG x4 required., Hypertension Review of Systems Constitutional: Reports: Malaise, Weakness, Fatigue. Denies: Chills, Fever, Weight Change HEENT: Denies: Head Aches, Sinus Congestion, Sinus Drainage Cardiovascular: Reports: Light Headedness. Denies: Chest Pain, Palpitations Respiratory: Denies: Cough, Shortness of breath at rest, Sputum production Gastrointestinal: Reports: Nausea. Denies: Abdominal Pain, Vomiting Genitourinary: Denies: Dysuria Musculoskeletal: Denies: Joint Pain, Joint Tenderness Skin: Denies: Rash, Wounds Neurological: Reports: Balance problems. Denies: Focal weakness, Numbness, Tingling Psychiatric: Reports: Anxiety, Depression. Denies: Homicidal Ideations, Suicidal Ideations Hematologic/ Lymphatic: Denies: Easy Bruising, Easy Bleeding VTE Information - Inpt Only VTE Present on Admission: No VTE Mechan Device Prophylaxis: SCD's VTE Pharm Prophylaxis ordered?: Yes Patient Problems: Active and Suspected Problems Carbamazepine toxicity (Acute) Subjective: Seated upright in ED bed, fatigued appearance, notes symptoms currently improved with current regimen treatment in the ED but more pronounced when she is attempting to be active. Objective: Physical Examination: General: awake, alert, oriented x 3 and cooperative, seated upright the ED bed, no acute distress, no current lightheadedness or dizziness but seated and not m oving. Skin: normal color, turgor, no icterus, cyanosis. HEENT: AT/NC, EOMI, PERRLA, mildly dry MM, no carotid bruits or JVD noted. Lungs: CTA bilaterally, moderate effort, moderate decrease BL bases, no rales, ronchi or wheezing. Heart: Regular rate and rhythm; no gallop, rub audible. Abdomen: soft, NTTP, ND, normal BS, no HSM. Extremities: no cyanosis, clubbing, or edema. Neurological: patient awake, alert, oriented x 3; cognitive function intact; pupils equally reactive to light and accomodation; cranial nerves II-XII grossly normal, moving all 4 extremities, no focal deficits, strength moderately global decrease secondary to acute presentation and complaints. Psychiatric: affect appears fatigued, no acute evidence of depressive or anxiety feelings. - Physical Exam Vitals/I&O's: Vital Signs Temp Pulse Resp BP Pulse Ox 97 F L 68 16 154/90 H 97 06/29/19 17:12 06/29/19 17:57 06/29/19 17:57 06/29/19 17:57 06/29/19 17:12 Oxygen Delivery Method Room Air Weight: 112 lb Body Mass Index (BMI) 20.5 Laboratory Results 06/29/19 17:40: WBC 8.3, RBC 4.11 L, Hgb 12.4, Hct 36.8 L, MCV 89.5, MCH 30.2, MCHC 33.7, RDW Std Deviation 43.5, RDW Coeff of Maricarmen 13.2, Plt Count 302, MPV 8.5, Immature Gran % (Auto) 0.500, Neut % (Auto) 68.4, Lymph % (Auto) 23.2, Borden % (Auto) 5.8, Eos % (Auto) 1.7, Baso % (Auto) 0.4, Absolute Neuts (auto) 5.7, Absolute Lymphs (auto) 1.92, Nucleated RBC % 0 06/29/19 17:40: Sodium 132 L, Potassium 3.8, Chloride 102, Carbon Dioxide 25.0, Anion Gap 5, BUN 7, Creatinine 0.51 L, Estim Creat Clear Calc 96.26, Est GFR (MDRD) Af Amer 159, Est GFR (MDRD) Non-Af 132, BUN/Creatinine Ratio 13.7, Glucose 112 H, Calcium 8.4 L, Troponin I < 0.015 06/29/19 17:40: Carbamazepine 17.9 H* 06/29/19 18:42: Urine Color Yellow, Urine Clarity Sl. Cloudy, Urine pH 7.0, Ur Specific [place] 1.010, Urine Protein Negative, Urine Glucose (UA) Normal, Urine Ketones Negative, Urine Occult Blood Negative, Urine Nitrite Negative, Urine Bilirubin Negative, Urine Urobilinogen Normal, Ur Leukocyte Esterase 25 H, Urine RBC 0 SEEN, Urine WBC 0-5 SEEN, Ur Squamous Epith Cells 5-10 SEEN, Urine Bacteria 0 SEEN, Urine Mucus 0 SEEN Current Medications Sodium Chloride () 1,000 mls @ 150 mls/hr IV .[id number] [facility] Last Admin: 06/29/19 18:00 Dose: 150 mls/hr Documented by: Assessment/Plan All Active Problems Abdominal pain (Acute) S/P colonoscopy (Acute) Carbamazepine toxicity (Acute) The patient is a 58 y/o F w/ PMHx: Chronic COPD, GERD, Anxiety and Depression/Bipolar disorder/ADHD, HTN, HLD, Tobacco use who presents to the [facility] ED on 06/29/19 with history of fatigue, malaise, lightheadedness, nauseated without emesis, feeling off balance today with recent tegretol increase for her anxiety and bipolar with transition to 300 mg BID which nearly doubled her intake. 1. Lightheadedness, dizziness, near syncope sensation secondary to carbamazepine toxicity: We will admit to PCU, maintain on telemetry given possibility of cardiac arrhythmias, repeat EKG in a.m., hold carbamazepine with repeat level in a.m., continue aggressive hydration, monitor I's and O's, repeat CBC as well as CMP in a.m., monitor for any urinary retention onset, maintain on fall precautions with planned reassessment of patient carbamazepine dosing given recent notable increase. If patient symptoms do not improve with resolution of supratherapeutic level of carbamazepine would necessitate consideration of further imaging with MRI of the brain and stroke evaluation. 2. Anxiety and depression/bipolar disorder/ADHD: We will temporarily hold as noted patient's carbamazepine given level supratherapeutic with acute presentation with side effects as noted felt secondary, will reassess patient's administration needs upon discharge once clinically improved. In interim we will continue patient home Zyprexa Marquis, Xanax and ADHD regimen. 3. Chronic COPD: Not on any regimen outpatient, tobacco cessation encouraged, PRN albuterol, HOB, IS parameters. 4. Tobacco Abuse: Encouraged cessation, inpatient consultation per RT, NR if desired. 5. Hypertension: Continue home regimen including metoprolol, PRN hydralazine. 6. GERD: We will maintain on home PPI. 7. Hyperlipidemia: Continue home statin regimen. 8. DVT prophylaxis: SCDs, Lovenox. Code Visit Inpatient E&M: 28868 Init Hosp L3
--- NOTE | 2019-06-29 19:38 | ED.DCSUM_ITS ---
- ER Visit Summary Date of Service: 06/29/19 Chief Complaint: [Dizziness and nausea] History of Present Illness: The patient is a 58 F [presents to the emergency department with complaint of dizziness and nausea that started this morning. Patient states that she was just increased on her Tegretol dose. Patient was taking 300 mg in the morning and 300 and evening and now she is supposed to take 600 mg in the morning and 600 mg in evening. Patient today had a lot of vague complaints of some chest discomfort some numbness and tingling initially told nurse that both hands and legs but she told me mostly left arm and left leg. Patient complains of a little bit of a headache off and on for several days. Patient does have history of bipolar and depression. Patient has history of anxiety. Patient has had prior appendectomy, cholecystectomy, and hysterectomy.] Physical Examination: [HEENT-PERRLA, EOMI. Cranial nerves II through XII grossly intact. TMs clear. Mucous membranes moist. No adenopathy. Cardiovascular-regular rate and rhythm without murmur or ectopy Lungs-clear to auscultation, chest wall stable without crepitus or subcu emphysema Abdomen-normoactive bowel sounds, soft, nontender, no rebound or rigidity, no peritoneal signs. Neuro aciw-[id number]-mwjf and heel fitzgerald testing within normal limits, negative Romberg, negative , Fundi benign. Extremities-intact ?4, normal range of motion, normal pulses, atraumatic] Test Results: CBC with differential unremarkable. Chemistries unremarkable. Urinalysis normal. Troponin less than 0.015. EKG obtained arrival showed sinus rhythm with a ventricular rate of 67 bpm with no acute ST segment changes. Chest x-ray showed nothing acute. CT scan of the brain without contrast was normal. Tegretol level was elevated at 18. [] Emergency Department Course and Treatment: [He had an IV line established and was given normal saline.] Do not feel patient is having a stroke. I feel symptoms likely related to the elevated Tegretol levels. Treatment Plan: [Admit for observation] Disposition: [Admit] Impression: [Tall toxicity.] This note was generated with [employer] dictation software. It may contain incorrect words, spelling, and punctuation that were not noted in review of the chart prior to signing
[2019-06-29] MEDS: Atorvastatin Calcium 20 MG Tablet PO (21:48)
[2019-06-29] MEDS: ALPRAZolam 0.5 MG Tablet PO (21:48)
[2019-06-29] MEDS: Ziprasidone HCl 20 MG Capsule PO (21:48)
[2019-06-30] VITALS (7 sets, daily range): BP systolic 113–127; BP diastolic 64–78; PULSE 60–74; RESP 16; TEMP 36.6–36.9; O2SAT 94–97
--- NOTE | 2019-06-30 05:55 | EKG12_ITS ---
Test Reason : AM EKG Blood Pressure : / mmHG Vent. Rate : 065 BPM Atrial Rate : 065 BPM P-R Int : 180 ms QRS Dur : 086 ms QT Int : 424 ms P-R-T Axes : 069 039 072 degrees QTc Int : 440 ms Normal sinus rhythm Normal ECG Confirmed by ANTONIO RODRIGUEZ, JACQUI ([id number]), make up editor ANITRA DUBOSE ([id number]) on 07/03/2019 11:09:14 AM Referred By: JUJU Confirmed By:JACQUI ALVAREZ MD
[2019-06-30] MEDS: 0.9% Normal Saline 1,000 ML 150 ML IV (06:11)
[2019-06-30 07:24] LABS: Absolute Lymphocyte Count 1.88 X10^3/uL (0.83-4.51); Absolute Neutrophil Count 3.6 X10^3/uL (2.0-7.7); Basophil# 0.02 X10^3/uL; Basophil% 0.3 % (0-1); Eosinophil# 0.19 X10^3/uL; Hematocrit 34.8 % (37-47); Hemoglobin 11.7 g/dL (12.0-15.0); Lymphocyte # 1.88 X10^3/ul (4.0); Mean Corp Hgb Conc 33.6 g/dL (32-36); Mean Corpuscular Hgb 30.2 pg (27.0-32.0); Mean Corpuscular Volume 89.9 fL (81-99); Mean Platelet Vol. 8.6 fl (6.2-12.0); Monocyte# 0.54 X10^3/uL; Monocyte% 8.6 % (0-10); NRBC Flagged by Analyzer 0 % (0-5); Neutrophil % 57.6 % (47-70); Platelet Count 265 K/mm3 (150-450); RBC Distribution Width CV 13.3 % (11.6-14.6); Red Blood Count 3.87 M/mm3 (4.2-5.4); White Blood Count 6.3 K/mm3 (4.4-11.0)
[2019-06-30 07:44] LABS: ALB/GLOB Ratio 0.9 RATIO (0.9-2.4); AST(SGOT) 13 U/L (15-37); Alanine Aminotransfer ALT/SGPT 16 U/L (13-56); Albumin, Serum 2.6 g/dL (3.2-5.0); Alkaline Phosphatase 74 U/L (45-117); Anion Gap 5 (5-15); BUN 6 mg/dL (7-18); BUN/Creat Ratio 13.7 RATIO (10-20); Calcium,Total 7.8 mg/dL (8.5-10.1); Chloride 104 mmol/L (98-107); Creatinine, Serum 0.44 mg/dL (0.55-1.02); EST Glomerular Filtration Rate 157 mL/min (>60); Est Glom Filt Rate - Afr Amer 190 mL/min (>60); Estimated Creatinine Clearance 111.57 ml/min; Globulin 2.9 g/dL (2.2-4.2); Glucose 98 mg/dL (74-106); Potassium 3.9 mmol/L (3.5-5.1); Protein, Total 5.5 g/dL (6.4-8.2); Sodium Level 133 mmol/L (136-145)
[2019-06-30 07:45] LABS: Carbamazepine (Tegretol) 10.3 ug/mL (4.0-12.0)
[2019-06-30] MEDS: ALPRAZolam 0.5 MG Tablet PO (09:29)
[2019-06-30] MEDS: Metoprolol(XL)Succ 25 MG Tablet PO (09:30)
[2019-06-30] MEDS: Pantoprazole Sodium 40 MG Tablet PO (09:30)
--- NOTE | 2019-06-30 10:45 | DCINST_ITS ---
- Discharge Diagnoses Current Active Problems: Current Active and Chronic Problems Carbamazepine toxicity (Acute) Chronic obstructive pulmonary disease (Chronic) Hypertension (Chronic) Hyperlipidemia (Chronic) You will use the following diet at home:: No restrictions Discharge Activity: Return to Normal Activity Call your doctor if you observe: Shortness of breath, Dizziness, Fainting spells, Chest pain Allergies/Adverse Reactions: Allergies morphine Allergy (Verified 06/29/19 17:14) Itching procaine [From Novocain] Allergy (Verified 06/29/19 17:14) Itching Medications to take at Discharge Dextroamphetamine/Amphetamine [Dextroamp-Amphet ER 20 mg Cap] 20 mg PO BID 01/09/19 Omeprazole 40 mg PO DAILY 01/09/19 metoprolol succinate 25 mg tablet,extended release 24 hr 25 mg PO DAILY #30 04/02/19 rosuvastatin 10 mg tablet 10 mg PO DAILY #30 04/02/19 ziprasidone HCl 20 mg capsule 20 mg PO QHS #30 04/02/19 ALPRAZolam [Xanax] 0.5 mg PO BID 06/29/19 Carbamazepine [Carbamazepine ER] 300 mg PO BID #0 06/30/19 Primary Care Physician: Veronica Rodas DO [Primary Care Provider] - Please follow up with your Primary Care Physician in: 1 Week Test Results: Test results from this visit will be discussed in further detail at your follow- up appointment, if applicable. Please Follow Up With: Psychiatry When: Follow-up with primary psychiatrist in 1 week Proposed Discharge Date: 06/30/19
--- NOTE | 2019-06-30 11:12 | DS.PCM_ITS ---
Discharge Date and Diagnosis Date of Admission: 06/29/19 Date of Discharge: 06/30/19 - Primary Discharge Diagnosis Active and Suspected Problems 1. Carbamazepine toxicity 2. Anxiety/depression/bipolar disorder/ADHD 3. Chronic COPD 4. Hypertension 5. Tobacco dependence 6. GERD 7. Hyperlipidemia - Secondary Discharge Diagnosis Chronic Problems ADHD (Chronic) Bipolar disorder (Chronic) Depression (Chronic) Tobacco dependence (Chronic) Chronic obstructive pulmonary disease (Chronic) Hypertension (Chronic) Hyperlipidemia (Chronic) Hospital Course and Treatment Imaging Results: Diagnostic Data Chest X-Ray 06/29/19 17:35 IMPRESSION: No acute chest disease. Electronically Signed: Russell Brandt MD at 18:01 EST , Service support , Brain CT 06/29/19 18:48 IMPRESSION: Normal unenhanced CT scan of the brain. Electronically Signed: Russell Brandt MD at 19:25 EST , Service support , Operations: None Procedures: None Summary of Care Provided: The patient is a 58 year old F admitted 06/29/2019 due to lightheadedness and nausea. 1. Carbamazepine toxicity-carbamazepine level 17.9 on admission. Patient received aggressive hydration as well as holding medication and repeat labs this morning 10.3. Patient symptoms have completely resolved. Patient reports she had increased anxiety recently and carbamazepine was increased from 300 mg twice daily to 600 mg twice daily which she began taking increased dose 06/24/2019. Patient initially expected to stay at least 2 midnights however patient improved much quicker than expected and was discharged home in stable condition. Given her resolve of symptoms quickly with normalized carbamazepine level, no further neuro evaluation was found to be necessary. Patient will resume prior carbamazepine dosing of 300 mg twice daily. She reports on this regimen she has not previously had any issues. Follow-up with prescribing psychiatrist in 1 week. 2. Anxiety/depression/bipolar disorder/ADHD-continue reduced dose carbamazepine as noted above as well as home Xanax, amphetamine and ziprasidone regimen. 3. Chronic COPD-no exacerbation. 4. Hypertension-stable, continue metoprolol regimen. 5. Tobacco dependence-encouraged cessation. 6. GERD-continue omeprazole. 7. Hyperlipidemia-continue statin. Patient seen and examined prior to discharge. Physical assessment as noted above. Patient is stable for discharge with follow up recommendations as noted above. This patient was seen by MIGUEL ÁNGEL Spann under the supervision of Dr. Dueñas. - Physical Exam Vitals/I&O's: Vital Signs Temp Pulse Resp BP Pulse Ox 98.5 F 74 16 113/68 97 06/30/19 09:28 06/30/19 09:30 06/30/19 09:28 06/30/19 09:30 06/30/19 09:28 Oxygen Delivery Method Room Air Weight: 116 lb 13.52 oz Body Mass Index (BMI) 21.3 Intake and Output for Last 24 Hours 06/28/19 06/29/19 06/30/19 23:59 23:59 23:59 Intake Total 1130 / 1130 1177.5 / 1177.5 Balance 1130 / 1130 1177.5 / 1177.5 General: Alert, Oriented x3, Cooperative HEENT: Atraumatic, PERRLA, EOMI, Normocephalic Neck: Supple, No JVD, Negative Carotid Bruits Lungs: Clear to auscultation, Normal air movement Cardiovascular: Regular rate, Regular Rhythm, Normal S1, Normal S2, No murmurs Abdomen: Bowel Sounds Present, Soft, Non Tender Extremities: No edema, Capillary Refill Less than 3 Seconds Skin: No rashes, No breakdown Musculoskeletal: No Tenderness to Palpation of Joints or Extremities Neurological: Cranial nerves II-XII grossly intact Psych/Mental Status: Normal Affect, Appropriate Laboratory Results 06/29/19 17:40: WBC 8.3, RBC 4.11 L, Hgb 12.4, Hct 36.8 L, MCV 89.5, MCH 30.2, MCHC 33.7, RDW Std Deviation 43.5, RDW Coeff of Maricarmen 13.2, Plt Count 302, MPV 8.5, Immature Gran % (Auto) 0.500, Neut % (Auto) 68.4, Lymph % (Auto) 23.2, [place] % (Auto) 5.8, Eos % (Auto) 1.7, Baso % (Auto) 0.4, Absolute Neuts (auto) 5.7, Absolute Lymphs (auto) 1.92, Nucleated RBC % 0 01/18/20 17:40: Sodium 132 L, Potassium 3.8, Chloride 102, Carbon Dioxide 25.0, Anion Gap 5, BUN 7, Creatinine 0.51 L, Estim Creat Clear Calc 96.26, Est GFR ( MDRD) Af Amer 159, Est GFR (MDRD) Non-Af 132, BUN/Creatinine Ratio 13.7, Glucose 112 H, Calcium 8.4 L, Troponin I < 0.015 06/29/19 17:40: Carbamazepine 17.9 H* 06/29/19 18:42: Urine Color Yellow, Urine Clarity Sl. Cloudy, Urine pH 7.0, Ur Specific [place] 1.010, Urine Protein Negative, Urine Glucose (UA) Normal, Urine Ketones Negative, Urine Occult Blood Negative, Urine Nitrite Negative, Urine Bilirubin Negative, Urine Urobilinogen Normal, Ur Leukocyte Esterase 25 H, Urine RBC 0 SEEN, Urine WBC 0-5 SEEN, Ur Squamous Epith Cells 5-10 SEEN, Urine Bacteria 0 SEEN, Urine Mucus 0 SEEN 06/30/19 07:08: WBC 6.3, RBC 3.87 L, Hgb 11.7 L, Hct 34.8 L, MCV 89.9, MCH 30.2, MCHC 33.6, RDW Std Deviation 44.0 H, RDW Coeff of Maricarmen 13.3, Plt Count 265, MPV 8.6, Immature Gran % (Auto) 0.500, Neut % (Auto) 57.6, Lymph % (Auto) 30.0, [place] % (Auto) 8.6, Eos % (Auto) 3.0, Baso % (Auto) 0.3, Absolute Neuts (auto) 3.6, Absolute Lymphs (auto) 1.88, Nucleated RBC % 0 06/30/19 07:08: Sodium 133 L, Potassium 3.9, Chloride 104, Carbon Dioxide 24.0, Anion Gap 5, BUN 6 L, Creatinine 0.44 L, Estim Creat Clear Calc 111.57, Est GFR (MDRD) Af Amer 190, Est GFR (MDRD) Non-Af 157, BUN/Creatinine Ratio 13.7, Glucose 98, Calcium 7.8 L, Total Bilirubin 0.20, AST 13 L, ALT 16, Alkaline Phosphatase 74, Total Protein 5.5 L, Albumin 2.6 L, Globulin 2.9, Albumin/Globulin Ratio 0.9 06/30/19 07:08: Carbamazepine 10.3 Current Medications Acetaminophen (Tylenol) 650 mg PO Q6H PRN PRN PRN Reason: Pain Score 1-3/Temp > 100.7 F Al Hydroxide/Mg Hydroxide (Mylanta Ii) 30 ml PO Q6H PRN PRN PRN Reason: Gastric Burning Albuterol Sulfate (Ventolin Aerosols) 2.5 mg INHALATION Q2H PRN PRN PRN Reason: SOB/Wheezing Alprazolam (Xanax) 0.5 mg PO BID [facility] Last Admin: 06/30/19 09:29 Dose: 0.5 mg Documented by: Atorvastatin Calcium (Lipitor) 20 mg PO QHS [facility] Last Admin: 06/29/19 21:48 Dose: 20 mg Documented by: Dextrose (D50w Syringe) 0 gm IV X1 PRN; Protocol PRN Reason: Hypoglycemia Enoxaparin Sodium (Lovenox) 40 mg SC DAILY [facility] Last Admin: 06/30/19 09:31 Dose: Not Given Documented by: Glucagon () 1 mg IM .X1 PRN PRN Reason: Hypoglycemia Guaifenesin (Robitussin) 20 ml PO Q4H PRN PRN PRN Reason: COUGH Hydralazine HCl (Apresoline Iv) 10 mg IV Q4H PRN PRN PRN Reason: SBP > 160 Sodium Chloride () 1,000 mls @ 150 mls/hr IV .[id number] [facility] Last Admin: 06/30/19 06:11 Dose: 150 mls/hr Documented by: Sodium Chloride () 250 mls @ 15 mls/hr IV .[id number] PRN PRN Reason: Saline Flush Sodium Chloride () 250 mls @ 15 mls/hr IV .[id number] PRN PRN Reason: Additional IVPB Infusion Magnesium Hydroxide (Milk Of Magnesia) 30 ml PO DAILY PRN PRN PRN Reason: Constipation Melatonin (Melatonin) 3 mg PO QHS PRN PRN PRN Reason: INSOMNIA Metoprolol Succinate (Toprol Xl (Beta Eduardo)) 25 mg PO DAILY [facility] Last Admin: 06/30/19 09:30 Dose: 25 mg Documented by: Ondansetron HCl (Zofran) 4 mg IV Q8H PRN PRN PRN Reason: NAUSEA/VOMITING Pantoprazole Sodium (Protonix) 40 mg PO DAILY [facility] Last Admin: 06/30/19 09:30 Dose: 40 mg Documented by: Prochlorperazine Edisylate (Compazine Iv) 5 mg IV Q4H PRN PRN PRN Reason: Breakthrough Nausea/Vomiting Sodium Chloride () 10 - 40 ml IV UD PRN PRN Reason: SALINE FLUSH Throat Lozenges (Cepacol Sore Throat Lozenge) 1 lozenge MUCOUS MEM Q2H PRN PRN PRN Reason: Sore Throat/Cough Ziprasidone (Geodon) 20 mg PO QHS [facility] Last Admin: 06/29/19 21:48 Dose: 20 mg Documented by: Discharge Diet: No Restrictions Discharge Activity: Return to Normal Activity Call your doctor if you observe: Shortness of breath, Dizziness, Fainting spells, Chest pain Home Medications: Medications to take at Discharge Dextroamphetamine/Amphetamine [Dextroamp-Amphet ER 20 mg Cap] 20 mg PO BID 01/09/19 Omeprazole 40 mg PO DAILY 01/09/19 metoprolol succinate 25 mg tablet,extended release 24 hr 25 mg PO DAILY #30 04/02/19 rosuvastatin 10 mg tablet 10 mg PO DAILY #30 04/02/19 ziprasidone HCl 20 mg capsule 20 mg PO QHS #30 04/02/19 ALPRAZolam [Xanax] 0.5 mg PO BID 06/29/19 Carbamazepine [Carbamazepine ER] 300 mg PO BID #0 06/30/19 Primary Care Physician: Veronica Rodas DO [Primary Care Provider] - Please follow up with your Primary Care Physician in: 1 Week Please Follow Up With: Psychiatry When: Follow-up with primary psychiatrist in 1 week Disposition: Home Minutes spent on discharge:: 35 Patient Condition:: Stable Medical Necessity - Tobacco Use Smoking Status: Current every day smoker Tobacco Use: Cigarettes Meaningful Use Info Meaningful Use Diagnoses (Choose all that apply): None applicable
== END 2019-06-30 13:00 | disposition home or self-care (01) ==
LOC: ED 17:59 → PCU 20:07
PROVIDERS: Admitting Provider Family Medicine; Emergency Provider Emergency Medicine; PCP Family Medicine; Visit Provider Internal Medicine
DX: R42 Dizziness and giddiness (principal); T42.1X1A Poisoning by iminostilbenes, accidental (unintentional), initial encounter; F31.9 Bipolar disorder, unspecified; F90.9 Attention-deficit hyperactivity disorder, unspecified type; E78.5 Hyperlipidemia, unspecified; I10 Essential (primary) hypertension; J44.9 Chronic obstructive pulmonary disease, unspecified; F17.210 Nicotine dependence, cigarettes, uncomplicated; F41.9 Anxiety disorder, unspecified; K21.9 Gastro-esophageal reflux disease without esophagitis; R53.81 Other malaise; R11.2 Nausea with vomiting, unspecified; Z79.899 Other long term (current) drug therapy
CPT/HCPCS: 36415; 70450; 71045; 80048; 80053; 80156; 81001; 84484; 85025; 93005; 96360; 96361; 99218; 99251; 99285; 99406; J7030; A4216; G0378; G0463

== ENCOUNTER 2019-08-20 01:01 | Observation (INO) | payer MEDICAID, SELFPAY ==
[2019-06-29 20:06] VITALS: BMI 21.3
[2019-08-20] VITALS (9 sets, daily range): BP systolic 118–150; BP diastolic 69–105; PULSE 64–82; RESP 14–18; TEMP 36.8–37; O2SAT 95–98; BMI 22.6; BMI 20.9; BMI 22.7
--- NOTE | 2019-08-20 01:10 | RAD_ITS ---
STUDY: X-RAY CHEST REASON FOR EXAM: Female, 58 years old. C/O SOB, HYPERTENSION, NUMBNESS IN LIPS,ARMS and amp; LEGS TECHNIQUE: Single AP portable view of the chest. COMPARISON: . FINDINGS: The lungs are clear and expanded. There is no demonstrated pleural abnormality. Normal size heart. Normal mediastinum and joao. Normal visualized pulmonary arteries. Normal visualized aortic arch and descending thoracic aorta. Normal visualized thoracic spine. There is degenerative osteoarthritis of the bilateral shoulders. There is no demonstrated abnormality of the visualized soft tissue structures of the upper abdomen. RAD/Chest 1 View IMPRESSION: Normal x-ray examination of the chest for age. Electronically Signed: Keli Montague MD at 1:27 EDT , Service support ,
--- NOTE | 2019-08-20 01:10 | CT_ITS ---
STUDY: CT BRAIN WITHOUT CONTRAST REASON FOR EXAM: Female, 58 years old. N/T LIPS, LT ARM AND BILAT. LEG WEAKNESS. Hx of HTN, COPD, HLD RADIATION DOSAGE (If Supplied By Facility): CTDIvol = ( 44.99 ) mGy, DLP = ( 762.36 ) mGycm TECHNIQUE: Transaxial CT imaging of the brain was performed without administration of intravenous contrast material. Individualized dose optimization techniques were used for this CT. COMPARISON: 06/29/2019. FINDINGS: Normal soft tissue structures. Normal calvarium. Normal size ventricles and extra-axial spaces for the patient''s age. Normal white matter tracts of the cerebral hemispheres. Normal basal ganglia and thalami. Normal brainstem. Normal cerebellum. There is no intracranial hemorrhage. There are no findings of an acute ischemic infarction. Normal visualized paranasal sinuses. CT/Brain/Head without Contrast IMPRESSION: Normal unenhanced CT scan of the brain. Electronically Signed: Keli Montague MD at 2:18 EDT , Service support ,
--- NOTE | 2019-08-20 01:10 | EKG12_ITS ---
Test Reason : NUMBNESSS Blood Pressure : / mmHG Vent. Rate : 072 BPM Atrial Rate : 072 BPM P-R Int : 166 ms QRS Dur : 076 ms QT Int : 394 ms P-R-T Axes : 067 037 067 degrees QTc Int : 431 ms Normal sinus rhythm Normal ECG Confirmed by ANTONIO RODRIGUEZ, JACQUI ([id number]), copy editor ANITRA DUBOSE ([id number]) on 08/20/2019 1:52:01 PM Referred By: MR Confirmed By:JACQUI ALVAREZ MD
--- NOTE | 2019-08-20 01:15 | ED.DCSUM_ITS ---
History of Present Illness Chief Complaint: Numb/Ting Narrative: Patient presenting for evaluation secondary to perioral numbness. Patient reports to me that a couple weeks ago she was diagnosed as having hypomagnesemia when she had similar symptoms. She has been on oral magnesium replacement. Patient states that tonight at about 930 she had a sudden onset of symptoms where she had numbness surrounding her lips, numbness in her legs bilaterally left being greater than right. She denies any visual changes or weakness. She denies any speech difficulty associated with this. She did have a mild amount of shortness of breath, but denies any chest pain. Patient is not on any diuretic medications. Review of systems otherwise negative. Past Medical History - Allergies and Home Meds Allergies/Adverse Reactions: Allergies morphine Allergy (Verified 08/20/19 01:02) Itching procaine [From Novocain] Allergy (Verified 08/20/19 01:02) Itching Primary Care Physician: Veronica Rodas DO [Primary Care Provider] - Prior records reviewed: Yes Past Medical History: - - Depression, bipolar, hypertension, hyperlipidemia, COPD Surgical History: cholecystectomy, - - Carpal tunnel repair bilaterally, trigger finger intervention, hysterectomy, cholecystectomy, appendectomy, lumbar back surgery x2, x3. Lives: With Family Smoking Status: Current every day smoker Drugs: None - Family History Maternal Family History: Reports: Diabetes, High Cholesterol, Heart Disease - Patient notes a maternal family history of CAD, CABG x3 required., Hypertension Paternal Family History: Reports: High Cholesterol, Heart Disease - Patient notes paternal family history of CAD, CABG x4 required., Hypertension Review of Systems All systems negative except as indicated General: Denies: Chills, Fever, Sweats Eyes: Denies: Visual changes - bilaterally, Diplopia ENT: Denies: Rhinorrhea, Sore throat Cardiovascular: Denies: Chest pain, Palpitations Respiratory: Reports: Dyspnea Gastrointestinal: Denies: Abdominal pain, Nausea, Vomiting, Diarrhea, Melena, Hematochezia Genitourinary: Denies: Dysuria, Hematuria, Frequency Musculoskeletal: Denies: Back pain, Extremity Pain Skin: Denies: Rash, Wounds Neurological: Reports: Parasthesia Physical Exam Vital Signs/Narrative: Vital Signs Temp Pulse Resp BP Pulse Ox 08/20/19 01:02 98.6 F 78 16 145/95 H 98 Inital Vital Signs reviewed: Yes General: Well nourished, Well developed, No Acute Distress Head: Normocephalic, Atraumatic Eyes: Perrl, EOMI ENT: Moist mucous membranes, No rhinorrhea Neck: Supple, Nontender Cardiovascular: Regular rate, Regular rhythm, No murmurs Respiratory: No distress, CTA bilaterally, Chest nontender Abdomen: Soft, Nontender, Nondistended, Normal bowel sounds Back: Nontender, Normal Inspection Extremities: Nontender, No edema Skin: Normal color, No rash Neurological: Alert, Oriented x3, Cranial nerves II-XII grossly intact, Normal S trength, Normal Sensation, - - Patient's NIH stroke scale is technically a 1 for feelings of numbness. She has some weakness of the left leg, when compared to the right but she still does not have any drift when NIH is being tested. No other neurologic abnormalities were noted. Psychological: Normal affect, Normal Mood Diagnostic/Tx/Re-eval Chest X-Ray - ED: 1 View, Read by ED Physician, Read by Radiologist, Normal Clinical Impression(s) from Imaging Studies Brain CT 08/20/19 01:10 IMPRESSION: Normal unenhanced CT scan of the brain. Electronically Signed: Keli Montague MD at 2:18 EDT , Service support , Chest X-Ray 08/20/19 01:10 IMPRESSION: Normal x-ray examination of the chest for age. Electronically Signed: Keli Montague MD at 1:27 EDT , Service support , Laboratory Data 08/20/19 08/20/19 08/20/19 01:05 01:05 01:05 WBC 8.6 RBC 4.38 Hgb 13.2 Hct 39.4 MCV 90.0 MCH 30.1 MCHC 33.5 RDW Std Deviation 46.2 H RDW Coeff of Maricarmen 14.0 Plt Count 271 MPV 9.1 Immature Gran % (Auto) 0.200 Neut % (Auto) 55.6 Lymph % (Auto) 32.8 [place] % (Auto) 8.1 Eos % (Auto) 2.8 Baso % (Auto) 0.5 Absolute Neuts (auto) 4.8 Absolute Lymphs (auto) 2.83 Nucleated RBC % 0 PT 13.2 INR 1.0 APTT 29.6 Sodium 141 Potassium 3.7 Chloride 113 H Carbon Dioxide 25.0 Anion Gap 3 L BUN 8 Creatinine 0.55 Estim Creat Clear Calc 89.26 Est GFR (MDRD) Af Amer 147 Est GFR (MDRD) Non-Af 121 BUN/Creatinine Ratio 14.6 Glucose 90 Calcium 8.8 Magnesium 1.8 Troponin I < 0.015 Carbamazepine 08/20/19 01:05 WBC RBC Hgb Hct MCV MCH MCHC RDW Std Deviation RDW Coeff of Maricarmen Plt Count MPV Immature Gran % (Auto) Neut % (Auto) Lymph % (Auto) [place] % (Auto) Eos % (Auto) Baso % (Auto) Absolute Neuts (auto) Absolute Lymphs (auto) Nucleated RBC % PT INR APTT Sodium Potassium Chloride Carbon Dioxide Anion Gap BUN Creatinine Estim Creat Clear Calc Est GFR (MDRD) Af Amer Est GFR (MDRD) Non-Af BUN/Creatinine Ratio Glucose Calcium Magnesium Troponin I Carbamazepine 4.3 - EKG Initial EKG Interpretation: - - Sinus rhythm [address] segments normal T waves no evidence of acute ischemia or arrhythmia. No changes from prior EKG in June of this year. - Medical Decision Making Patient presented for evaluation secondary to some perioral numbness. Initial physical exam showed the patient to have an NIH of 1, she did have some left leg weakness when compared to the right leg but she did not have any drift so she did not receive a point on the NIH scale for it. She did not meet stroke team criteria, so this was not activated. Work-up was obtained. CT imaging of the brain was negative per radiology. Chest x-ray by my personal review as well as radiology also negative. CBC chemistry coagulation studies troponin found to be unremarkable. EKG found to be unremarkable as noted above. Patient continues to have this perioral numbness, and subclinical weakness of the left leg which she states she is never had in the past. I did obtain a Tegretol level as the patient has been toxic on her levels in the past, but this was found to be normal and therapeutic. Due to the patient's persistent symptoms I feel that she requires admission for neurologic work-up. Patient will be admitted under the hospitalist. ED Disposition - Plan for ED Patient: Disposition: Acute Care Hospital [facility] Diagnosis: Perioral numbness, Left leg weakness
[2019-08-20 01:17] LABS: Absolute Lymphocyte Count 2.83 X10^3/uL (0.83-4.51); Absolute Neutrophil Count 4.8 X10^3/uL (2.0-7.7); Basophil# 0.04 X10^3/uL; Basophil% 0.5 % (0-1); Eosinophil# 0.24 X10^3/uL; Eosinophils% 2.8 % (0-5); Hematocrit 39.4 % (37-47); Hemoglobin 13.2 g/dL (12.0-15.0); Lymphocyte # 2.83 X10^3/ul (4.0); Lymphocyte % 32.8 % (19-41); Mean Corp Hgb Conc 33.5 g/dL (32-36); Mean Corpuscular Hgb 30.1 pg (27.0-32.0); Mean Platelet Vol. 9.1 fl (6.2-12.0); Monocyte% 8.1 % (0-10); NRBC Flagged by Analyzer 0 % (0-5); Neutrophil % 55.6 % (47-70); Platelet Count 271 K/mm3 (150-450); RBC Distribution Width SD 46.2 fl (35.1-43.9); Red Blood Count 4.38 M/mm3 (4.2-5.4); White Blood Count 8.6 K/mm3 (4.4-11.0)
[2019-08-20 01:24] LABS: Prothrombin Time (Protime)PT. 13.2 SECONDS (11.7-14.9)
[2019-08-20 01:25] LABS: Partial Thromboplast Time 29.6 Seconds (24.1-36.2)
[2019-08-20 01:39] LABS: Anion Gap 3 (5-15); BUN 8 mg/dL (7-18); BUN/Creat Ratio 14.6 RATIO (10-20); Calcium,Total 8.8 mg/dL (8.5-10.1); Chloride 113 mmol/L (98-107); Creatinine, Serum 0.55 mg/dL (0.55-1.02); EST Glomerular Filtration Rate 121 mL/min (>60); Est Glom Filt Rate - Afr Amer 147 mL/min (>60); Estimated Creatinine Clearance 89.26 ml/min; Glucose 90 mg/dL (74-106); Magnesium 1.8 mg/dL (1.6-2.6); Potassium 3.7 mmol/L (3.5-5.1); Sodium Level 141 mmol/L (136-145)
[2019-08-20 03:05] LABS: Carbamazepine (Tegretol) 4.3 ug/mL (4.0-12.0)
--- NOTE | 2019-08-20 03:21 | HP.PCM_ITS ---
Problem List (1) Stroke-like symptoms Status: Acute (2) Perioral numbness Status: Acute (3) Left leg weakness Status: Acute (4) ADHD Status: Chronic Qualifiers: Attention deficit-hyperactivity disorder type: unspecified Qualified Code(s): F90.9 - Attention-deficit hyperactivity disorder, unspecified type (5) Bipolar disorder Status: Chronic Qualifiers: Active/Remission status: remission status unspecified Qualified Code(s): F31.9 - Bipolar disorder, unspecified (6) Depression Status: Chronic (7) Tobacco dependence Status: Chronic (8) Chronic obstructive pulmonary disease Status: Chronic Qualifiers: Emphysema type: unspecified (9) Hypertension Status: Chronic Qualifiers: Hypertension type: essential hypertension Qualified Code(s): I10 - Essential (primary) hypertension (10) Hyperlipidemia Status: Chronic Qualifiers: Hyperlipidemia type: unspecified Qualified Code(s): E78.5 - Hyperlipidemia, unspecified History of Present Illness Date of Admission: 08/20/19 Chief Complaint: anny-oral numbness and tingling The patient is a 58 year old F with a significant history of ADD; bipolar disorder and COPD who presents emergency department with perioral numbness and tingling. Her symptoms started about 2 hours prior to presentation. Also her blood pressure was high at that time. She reports a home blood pressure of 177/124 prompting her to take her blood pressure medication. When paramedics checked her blood pressure her blood pressure was still elevated. Further she reports numbness and tingling of her left arm and bilateral legs. The numbness and tingling of legs is worse in the left leg than in her right leg.. Also she reported weakness in her left leg. She denies any speech changes. Patient reported that her numbness and tingling of her perioral area started about 3 weeks ago. She associates it with her increase in her carbamazepine. When her per-oral numbness and tingling symptoms started about 3 weeks ago she was found to have hypomagnesemia and so she was started on magnesium supplementation. On the day of this presentation her perioral numbness and tingling was more compared to previous and it had involved her extremities .Also now she has new left-sided weakness. ED doctor reported some left leg weakness. Patient was recently admitted at our hospital on 06/29/2019 and discharged on 06/30/2023 with carbamazepine toxicity. Past Medical History Past Medical History (Chronic Problems): Chronic Problems ADHD (Chronic) Bipolar disorder (Chronic) Depression (Chronic) Tobacco dependence (Chronic) Chronic obstructive pulmonary disease (Chronic) Hypertension (Chronic) Hyperlipidemia (Chronic) Allergies morphine Allergy (Verified 08/20/19 01:02) Itching procaine [From Novocain] Allergy (Verified 08/20/19 01:02) Itching Home Medications: Ambulatory Orders Medication Instructions Recorded Dextroamphetamine/Amphetamine 20 mg PO BID 01/09/19 [Dextroamp-Amphet ER 20 mg Cap] Omeprazole 20 mg PO DAILY 01/09/19 metoprolol succinate 25 mg 25 mg PO DAILY #30 04/02/19 tablet,extended release 24 hr rosuvastatin 10 mg tablet 10 mg PO DAILY #30 04/02/19 ziprasidone HCl 20 mg capsule 20 mg PO QHS #30 04/02/19 ALPRAZolam [Xanax] 0.5 mg PO BID PRN PRN 06/29/19 Albuterol IH (ProAir) [Proair Hfa 2 puff INHALATION Q6H PRN 08/20/19 (SP)Vent Pts] Carbamazepine [Carbamazepine ER] 300 mg PO DAILY 08/20/19 Doxycycline Hyclate 100 mg PO BID 08/20/19 Surgical History: cholecystectomy, - - Carpal tunnel repair bilaterally, trigger finger intervention, hysterectomy, cholecystectomy, appendectomy, lumbar back surgery x2, x3. 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 Lives: With Family Smoking Status: Current every day smoker Tobacco Use: Cigarettes Drugs: Marijuana - *Family History Maternal History Items: Diabetes, High Cholesterol, Heart Disease - Patient notes a maternal family history of CAD, CABG x3 required., Hypertension Paternal History Items: High Cholesterol, Heart Disease - Patient notes paternal family history of CAD, CABG x4 required., Hypertension Review of Systems Constitutional: Denies: Chills, Fever, Weight Change HEENT: Denies: Head Aches, Sinus Congestion, Sinus Drainage Cardiovascular: Denies: Chest Pain, Palpitations Respiratory: Denies: Cough, Shortness of breath at rest, Sputum production Gastrointestinal: Denies: Abdominal Pain, Nausea, Vomiting Genitourinary: Denies: Dysuria Musculoskeletal: Denies: Joint Pain, Joint Tenderness Skin: Denies: Rash, Wounds Neurological: Reports: Focal weakness, Numbness, Tingling Psychiatric: Denies: Anxiety, Depression, Homicidal Ideations, Suicidal Ideations Hematologic/ Lymphatic: Denies: Easy Bruising, Easy Bleeding VTE Information - Inpt Only VTE Present on Admission: No VTE Mechan Device Prophylaxis: None VTE Pharm Prophylaxis ordered?: Yes Patient Problems: Active and Suspected Problems Perioral numbness (Acute) Left leg weakness (Acute) Stroke-like symptoms (Acute) - Physical Exam Vitals/I&O's: Vital Signs Temp Pulse Resp BP Pulse Ox 98.6 F 75 18 137/77 H 95 08/20/19 01:02 08/20/19 03:08 08/20/19 03:08 08/20/19 03:08 08/20/19 03:08 Oxygen Delivery Method Room Air Weight: 56.2 kg Body Mass Index (BMI) 22.6 General: Alert, Oriented x3, Cooperative HEENT: Atraumatic, PERRLA, EOMI, Normocephalic Neck: Supple, No JVD, Negative Carotid Bruits Lungs: Clear to auscultation, Normal air movement, No rhonchi, No wheeze, No rales Cardiovascular: Regular rate, Normal S1, Normal S2, No murmurs Abdomen: Bowel Sounds Present, Soft, Non Tender Extremities: No edema, Capillary Refill Less than 3 Seconds Skin: No rashes, No breakdown Musculoskeletal: No Tenderness to Palpation of Joints or Extremities Neurological: Cranial nerves II-XII grossly intact, Deep Tendon Reflexes 2+/4 and Symmetrical, Muscle tone normal, - - Left leg strength 4/5; right leg strength 5/5; upper extremity strength bilateral 5 out of 5. Psych/Mental Status: Normal Affect, Appropriate Laboratory Results 08/20/19 01:05: WBC 8.6, RBC 4.38, Hgb 13.2, Hct 39.4, MCV 90.0, MCH 30.1, MCHC 33.5, RDW Std Deviation 46.2 H, RDW Coeff of [place] 14.0, Plt Count 271, MPV 9.1, Immature Gran % (Auto) 0.200, Neut % (Auto) 55.6, Lymph % (Auto) 32.8, [place] % (Auto) 8.1, Eos % (Auto) 2.8, Baso % (Auto) 0.5, Absolute Neuts (auto) 4.8, Absolute Lymphs (auto) 2.83, Nucleated RBC % 0 08/20/19 01:05: PT 13.2, INR 1.0, APTT 29.6 08/20/19 01:05: Sodium 141, Potassium 3.7, Chloride 113 H, Carbon Dioxide 25.0, Anion Gap 3 L, BUN 8, Creatinine 0.55, Estim Creat Clear Calc 89.26, Est GFR (MDRD) Af Amer 147, Est GFR (MDRD) Non-Af 121, BUN/Creatinine Ratio 14.6, Glucose 90, Calcium 8.8, Magnesium 1.8, Troponin I < 0.015 08/20/19 01:05: Carbamazepine 4.3 Assessment/Plan All Active Problems Perioral numbness (Acute) Left leg weakness (Acute) Stroke-like symptoms (Acute) The patient is a 58 year old F with a significant history of ADD; bipolar disorder and COPD who presents emergency department with increased perioral numbness and tingling which is now involving heR extremities and with left-sided weakness. Numbness and tingling and left-sided weakness Cannot rule out stroke. Frequent [facility] stroke assessment. CT of the head was unremarkable Magnesium level and Tegretol level normal. -Check Hba1c, Lipid level Physical therapy, occupational therapy and speech therapy to work with patient. N.p.o. until bedside swallow eval. Daily aspirin. Continue home statin. Permissive hypertension. Control blood pressure with labetalol for systolic blood pressure of more than 220 or diastolic blood pressure of more than 120. -Permissive HTN for 24 hrs, alf goal BP < 120/80 mm Hg MRI/MRAM of head; brain; and neck. Echocardiogram ordered. Bipolar disorder/ ADD Patient does not want to take carbamazepine again. She thinks she can stay off it. Patient will provide information of her psychiatrist. Patient uses long-acting Adderall which our pharmacy does not carry it. Discussed with patient that short acting Adderall can be used as a substitute. However patient thinks that she would not need Adderall and if she needs Adderall her daughter will bring it. Will discontinue Adderall for now. Xanax as needed continued. GERD: PPI continued COPD: PRN albuterol continued. Marijuana use: Counseled. DVT prophylaxis: Subcutaneous Lovenox. OBSV E&M: [id number] Initial observation care L2
--- NOTE | 2019-08-20 04:02 | MRI_ITS ---
STUDY: MRI BRAIN WITHOUT CONTRAST REASON FOR EXAM: Female, 58 years old. N/T to lips, BLE and left arm, h/a TECHNIQUE: Standardized multiplanar fat and water weighted pulse sequences were obtained. COMPARISON: CT earlier today FINDINGS: Normal size of the ventricles and extra-axial spaces for the patient''s age. Scattered punctate hyperintensities of the periarticular and subcortical white matter likely represent microangiopathic gliosis from chronic hypertension or metabolic disease. However, other possibilities include hypercoagulable state including antiphospholipid antibody syndrome, vasculitis, migraine headaches, demyelinating disease (multiple sclerosis), and Lyme disease. There is no evidence for recent intracranial ischemia or other cause of cytotoxic edema on diffusion weighted imaging (DWI). Normal T2* images of the brain without demonstrated susceptibility artifact. There is no demonstrated hemosiderin stain. Normal bilateral basal ganglia. Normal thalami. There is no extra-axial fluid accumulation. Normal flow voids within the major intracranial circulation suggesting patency by spin echo criteria. Normal sella turcica, pituitary gland, infundibular stalk, optic chiasm and hypothalamus. Normal tectal plate and pineal gland. Normal midbrain, christopher and medulla. Normal cerebellum. Normal basal cisterns. Normal bilateral temporal bones. Normal bilateral internal auditory canals. No demonstrated orbital abnormality, within the constraints of a routine brain study. Normal visualized paranasal sinuses. Normal calvarium and skull base. Normal visualized soft tissue structures. Normal visualized upper cervical spine. MRI/Brain without Contrast IMPRESSION: Scattered punctate hyperintensities of the periventricular and subcortical white matter likely represent microangiopathic gliosis from chronic hypertension or metabolic disease. However, other possibilities include hypercoagulable state including antiphospholipid antibody syndrome, vasculitis, migraine headaches, demyelinating disease (multiple sclerosis), and Lyme disease. No acute infarct. Electronically Signed: Ruy Abdalla MD at 9:26 EDT Tel , Service support ,
--- NOTE | 2019-08-20 04:02 | MRI_ITS ---
STUDY: MRA NECK WITH AND WITHOUT CONTRAST REASON FOR EXAM: Female, 58 years old. CVA,numbness BLE,lips, lt arm, H/A TECHNIQUE: 3-D yhte-cd-myzech (TOF) imaging was performed in an 1.5 T MRI scanner. IV Dotrem 11ml was administered for the contrast enhanced images. COMPARISON: None. FINDINGS: RIGHT CAROTID ARTERIES: Normal right common carotid artery (CCA). Normal right common carotid bulb. Normal origin of the right internal carotid (ICA) artery without a hemodynamically significant stenosis. Normal visualized cervical portion of the right internal carotid artery. Normal origin of the right external carotid artery (ECA). LEFT CAROTID ARTERIES: Normal left common carotid artery (CCA). Normal left common carotid bulb. Normal origin of the left internal carotid (ICA) artery without a hemodynamically significant stenosis. Normal visualized cervical portion of the left internal carotid artery. Normal origin of the left external carotid artery (ECA). VERTEBRAL ARTERIES: Normal antegrade flow within the bilateral vertebral artery without a hemodynamically significant stenosis. MRI/MRA Neck WITH and W/O Contrast IMPRESSION: Normal bilateral cervical carotid and vertebral arteries. Electronically Signed: Ruy Abdalla MD at 10:05 EDT Tel , Service support ,
--- NOTE | 2019-08-20 04:02 | MRI_ITS ---
STUDY: MRA OF THE HEAD WITHOUT CONTRAST REASON FOR EXAM: Female, 58 years old. Facial, arm and BLE numbness x 2 weeks, h/a TECHNIQUE: 3-D ghkb-nu-qdzitw (TOF) imaging was performed with MIPs. The study was performed unenhanced. COMPARISON: None. FINDINGS: Normal bilateral petrous carotid arteries. Normal right cavernous carotid artery with a normal supraclinoid bifurcation. Normal left cavernous carotid artery with a normal supraclinoid bifurcation. Normal right A1 segments of the anterior cerebral artery. Normal left A1 segments of the anterior cerebral artery. Normal intact anterior communicating artery (ACOM). Normal bilateral A2 segments of the anterior cerebral arteries. Normal right M1 and M2 segments of the middle cerebral arteries, with a normal M1 bifurcation. Normal left M1 and M2 segments of the middle cerebral arteries, with a normal M1 bifurcation. Normal right posterior communicating artery (PCOM). Normal left posterior communicating artery (PCOM). Normal bilateral vertebral arteries. Normal basilar artery with a normal basilar bifurcation. The visualized bilateral superior cerebellar (SCA) arteries are normal. Normal bilateral P1, P2 and visualized P3 segments of the posterior cerebral arteries. There is no demonstrated aneurysm of the [place]. There is no major vessel occlusion or hemodynamically significant stenosis. There is no demonstrated abnormality of the visualized brain. MRI/MRA Head ONLY without Contrast IMPRESSION: Normal MRA of the head Electronically Signed: Ruy Abdalla MD at 10:05 EDT Tel , Service support ,
--- NOTE | 2019-08-20 04:02 | ECHOD_ITS ---
Reason For Study: TIA/CVA Procedure This was a 2D Doppler, Color Flow transthoracic echocardiogram. The exam was of adequate technical quality. Exam performed in department. Left Ventricle Normal LV size. Apical false tendon noted. Left ventricular systolic function is normal. The estimated ejection fraction is 60 %. Transmitral doppler flow suggestive of impaired relaxation of left ventricle. No regional wall motion abnormalities noted. Right Ventricle Normal RV size. Normal systolic function. Atria Normal left atrium. Normal right atrium. No doppler evidence for ASD. Mitral Valve There is no mitral annular calcification. Normal mitral valve. Trivial mitral valve insufficiency. Tricuspid Valve Normal tricuspid valve. Trivial tricuspid valve insufficiency. Right ventricular systolic pressure estimated to be 25 mmHg. Aortic Valve Trisinus/trileaflet aortic valve. Normal aortic valve. Trivial aortic valve insufficiency. Pulmonic Valve The pulmonic valve is not well visualized. Great Vessels Normal sized aortic root. Pericardium/Pleural No pericardial effusion. Medication Performed a rapid injection of agitated mix of 9 cc saline and 1cc air to assess for atrial septal defect. MMode/2D Measurements & Calculations LVIDd: 4.4 cm IVSd: 0.91 cm Ao root diam: 3.0 cm LVIDs: 2.4 cm LVPWd: 0.99 cm RVDd: 3.1 cm FS: 45.6 % LAV(MOD-bp): 34.8 ml LA A4 area: 12.9 cm2 LA dimension(2D): 3.2 cm LAV(MOD-bp) Indexed: 23.1 ml/m2 LAV(MOD-sp2): 35.0 ml LAV(MOD-sp4): 29.2 ml RA A4 area: 12.2 cm2 Time Measurements MV dec time: 0.19 sec Doppler Measurements & Calculations MV E max anirudh: 77.7 cm/sec Lat Peak E' Anirudh: 10.3 cm/sec Med Peak E' Anirudh: 7.2 cm/sec MV A max anirudh: 90.9 cm/sec E/E' lat: 7.5 E/E' med: 10.8 MV E/A: 0.86 Ao V2 max: 149.3 cm/sec LV V1 max: 101.3 cm/sec PA V2 max: 84.0 cm/sec Ao max P.9 mmHg LV V1 max P.1 mmHg TR max anirudh: 233.8 cm/sec TR max P.9 mmHg Interpretation Summary Left ventricular systolic function is normal. The estimated ejection fraction is 60 %. Apical false tendon noted. Trivial mitral valve insufficiency. Trivial tricuspid valve insufficiency. Trivial aortic valve insufficiency. Right ventricular systolic pressure estimated to be 25 mmHg. Transmitral doppler flow suggestive of impaired relaxation of left ventricle Ordering Physician: Jim Goldstein Referring Physician: Veronica Rodas Performed By: Maria Victoria Weaver, CHIQUITA, RVT
[2019-08-20 07:01] LABS: Cholesterol 189 mg/dL (200); High Density Lipoprotein 46 mg/dL; Triglycerides 129 mg/dL; Very Low Density Lipoprotein 26 mg/dL (5-40)
[2019-08-20 08:02] LABS: Hemoglobin A1c 5.6 % (4.2-6.3)
[2019-08-20] MEDS: Aspirin 81 MG TAB.CHEW PO (10:08)
[2019-08-20] MEDS: Pantoprazole Sodium 20 MG Tablet PO (10:08)
[2019-08-20] MEDS: Acetaminophen 325 MG Tablet 650 MG PO (14:12)
--- NOTE | 2019-08-20 15:05 | DCINST_ITS ---
- Discharge Diagnoses Current Active Problems: Current Active and Chronic Problems Perioral numbness (Acute) Left leg weakness (Acute) Stroke-like symptoms (Acute) You will use the following diet at home:: Cardiac Your food should be the consistency of: Regular Your liquids should be the consistency of: Regular/Thin Discharge Activity: Return to Normal Activity Weight Bearing Status: Weight bearing as tolerated Call your doctor if you observe: Numbness or Tingling, - - weakness in any extremities Instructions: Symptoms of Stroke, Risk Factors for Stroke Additional Instructions: follow up with your neurologist within 1-2 weeks. TO call neurologist and PCP if you get another seizure. counselled to be compliant with antiseizure medications. Allergies/Adverse Reactions: Allergies morphine Allergy (Verified 08/20/19 04:09) Itching procaine [From Novocain] Allergy (Verified 08/20/19 04:09) Itching Medications to take at Discharge Dextroamphetamine/Amphetamine [Dextroamp-Amphet ER 20 mg Cap] 20 mg PO BID 01/09/19 Omeprazole 20 mg PO DAILY 01/09/19 metoprolol succinate 25 mg tablet,extended release 24 hr 25 mg PO DAILY #30 04/02/19 rosuvastatin 10 mg tablet 10 mg PO DAILY #30 04/02/19 ziprasidone HCl 20 mg capsule 20 mg PO QHS #30 04/02/19 ALPRAZolam [Xanax] 0.5 mg PO BID PRN PRN 06/29/19 Albuterol IH (ProAir) [Proair Hfa] 2 puff INHALATION Q6H PRN 08/20/19 Carbamazepine [Carbamazepine ER] 300 mg PO DAILY 08/20/19 Doxycycline Hyclate 100 mg PO BID 08/20/19 Primary Care Physician: Veronica Rodas DO [Primary Care Provider] - Please follow up with your Primary Care Physician in: one week Test Results: Test results from this visit will be discussed in further detail at your follow- up appointment, if applicable. Proposed Discharge Date: 08/20/19
--- NOTE | 2019-08-20 15:09 | DS.PCM_ITS ---
Discharge Date and Diagnosis Date of Admission: 08/20/19 Date of Discharge: 08/20/19 - Primary Discharge Diagnosis Active and Suspected Problems Perioral numbness (Acute) Left leg weakness (Acute) Stroke-like symptoms (Acute) - Secondary Discharge Diagnosis Chronic Problems ADHD (Chronic) Bipolar disorder (Chronic) Depression (Chronic) Tobacco dependence (Chronic) Chronic obstructive pulmonary disease (Chronic) Hypertension (Chronic) Hyperlipidemia (Chronic) Hospital Course and Treatment neurology- SOC Telemed Operations: None Procedures: None Summary of Care Provided: The patient is a 58 year old F with a past medical history significant for bipolar disorder, ADHD and COPD. She was admitted through the ED on 08/20/2019 with a complaint of perioral numbness and tingling. Symptoms have been going on for about 2 weeks prior to presentation but she attributed to her carbamazepine. She states symptoms worsened about 2 hours prior to when she came in. She had also had some lower extremity weakness and numbness and tingling in her left arm. She states her blood pressure was really high at home at the time she came in with a blood pressure of around 177/124. She states she had been diagnosed with hypomagnesemia about 3 weeks prior to admission as this was thought to be originally the cause of her perioral numbness and tingling. She had been started on magnesium supplementation. She was admitted and managed for perioral numbness and tingling and left-sided weakness and to rule out probable stroke. She had a CT of the brain which was normal. She had an MRI and MRA of the head and neck which were also normal. She had MRI of the brain which showed scattered punctate hyperintensities of the periventricular and subcortical white matter likely representing microangiopathic gliosis from chronic hypertension or metabolic disease but there was no acute infarct. Neurology consult was obtained with tele-neurology and they did not think patient had any symptoms of stroke. 2D echo was also ordered and showed EF of 60%, with normal LV systolic function and RVSP of 25mmHg . Patient remained stable and was discharged home on 08/20/2019. She was counseled to be compliant with her carbamazepine and to follow-up with a neurologist on outpatient basis to determine how dose should be adjusted. She is to follow-up with her PCP also within 1 to 2 weeks Patient seen and examined prior to discharge. She had no complaints. Perioral numbness and tingling had improved. Review of systems otherwise negative. Labs and vitals reviewed. Home medication reviewed and reconciled. - Physical Exam Vitals/I&O's: Vital Signs Temp Pulse Resp BP Pulse Ox 98.6 F 82 16 125/69 H 97 08/20/19 14:15 08/20/19 14:15 08/20/19 14:15 08/20/19 14:15 08/20/19 14:15 Oxygen Delivery Method Room Air Weight: 114 lb 10.246 oz Body Mass Index (BMI) 20.9 General: Alert, Oriented x3, Cooperative, No apparent distress HEENT: Atraumatic, PERRLA, EOMI, Normocephalic Oral: Moist Mucosa Neck: Supple, No JVD, Negative Carotid Bruits Lungs: Clear to auscultation, Normal air movement, No rhonchi, No wheeze Cardiovascular: Regular rate, Regular Rhythm, Normal S1, Normal S2, No murmurs Abdomen: Bowel Sounds Present, Soft, Non Tender, Non-Distended, No Hepato- splenomegaly Extremities: No clubbing, No cyanosis, No edema, Capillary Refill Less than 3 Seconds Skin: No rashes, No breakdown Musculoskeletal: No Tenderness to Palpation of Joints or Extremities Lymphatic: No Cervical, Supraclavicular, or Inguinal Adenopathy Neurological: Cranial nerves II-XII grossly intact, Neuro grossly intact, Motor Exam 5/5 strength throughout, - - minimal numbness and tingling, power in all extremities is 5/5 Psych/Mental Status: Normal Affect, Appropriate, Alert and oriented to time, place, person, mood and affect Laboratory Results 08/20/19 01:05: WBC 8.6, RBC 4.38, Hgb 13.2, Hct 39.4, MCV 90.0, MCH 30.1, MCHC 33.5, RDW Std Deviation 46.2 H, RDW Coeff of Maricarmen 14.0, Plt Count 271, MPV 9.1, Immature Gran % (Auto) 0.200, Neut % (Auto) 55.6, Lymph % (Auto) 32.8, [place] % (Auto) 8.1, Eos % (Auto) 2.8, Baso % (Auto) 0.5, Absolute Neuts (auto) 4.8, Absolute Lymphs (auto) 2.83, Nucleated RBC % 0 08/20/19 01:05: PT 13.2, INR 1.0, APTT 29.6 08/20/19 01:05: Sodium 141, Potassium 3.7, Chloride 113 H, Carbon Dioxide 25.0, Anion Gap 3 L, BUN 8, Creatinine 0.55, Estim Creat Clear Calc 89.26, Est GFR (MDRD) Af Amer 147, Est GFR (MDRD) Non-Af 121, BUN/Creatinine Ratio 14.6, Glucose 90, Calcium 8.8, Magnesium 1.8, Troponin I < 0.015 08/20/19 01:05: Carbamazepine 4.3 08/20/19 01:05: Hemoglobin A1c 5.6 08/20/19 06:10: Triglycerides 129, Cholesterol 189, LDL Cholesterol 117, VLDL Cholesterol 26, HDL Cholesterol 46 Current Medications Acetaminophen (Tylenol) 650 mg PO Q6H PRN PRN PRN Reason: Pain Score 1-10/Temp > 100.7 F Last Admin: 08/20/19 14:12 Dose: 650 mg Documented by: Albuterol Sulfate (Ventolin Aerosols) 2.5 mg INHALATION Q2H PRN PRN PRN Reason: sob/wheezing Alprazolam (Xanax) 0.5 mg PO BID PRN PRN PRN Reason: ANXIETY Aspirin (Aspirin, Baby) 81 mg PO DAILY@0800 [facility] Last Admin: 08/20/19 10:08 Dose: 81 mg Documented by: Atorvastatin Calcium (Lipitor) 20 mg PO DAILY@2200 [facility] Enoxaparin Sodium (Lovenox) 40 mg SC DAILY [facility] Last Admin: 08/20/19 10:07 Dose: Not Given Documented by: Glucagon () 1 mg IM .X1 PRN PRN Reason: Hypoglycemia Dextrose (Dextrose 10%-Water) 250 mls @ 999 mls/hr IV .Q16M PRN; Protocol PRN Reason: HYPOGLYCEMIA Sodium Chloride () 250 mls @ 15 mls/hr IV .[id number] PRN PRN Reason: Saline Flush Sodium Chloride () 250 mls @ 15 mls/hr IV .[id number] PRN PRN Reason: Additional IVPB Infusion Labetalol HCl (Trandate) 10 mg IV Q10M PRN PRN Reason: MAINTAIN BP < 220/120 Stop: 08/21/19 04:03 Pantoprazole Sodium (Protonix) 20 mg PO DAILY JIM Last Admin: 08/20/19 10:08 Dose: 20 mg Documented by: Sodium Chloride () 10 - 40 ml IV UD PRN PRN Reason: SALINE FLUSH Discharge Diet: Low fat/ Low Cholesterol Discharge Activity: Return to Normal Activity Weight Bearing Status: Weight bearing as tolerated Call your doctor if you observe: Numbness or Tingling, - - weakness in any extremities Home Medications: Medications to take at Discharge Dextroamphetamine/Amphetamine [Dextroamp-Amphet ER 20 mg Cap] 20 mg PO BID 01/09/19 Omeprazole 20 mg PO DAILY 01/09/19 metoprolol succinate 25 mg tablet,extended release 24 hr 25 mg PO DAILY #30 04/02/19 rosuvastatin 10 mg tablet 10 mg PO DAILY #30 04/02/19 ziprasidone HCl 20 mg capsule 20 mg PO QHS #30 04/02/19 ALPRAZolam [Xanax] 0.5 mg PO BID PRN PRN 06/29/19 Albuterol IH (ProAir) [Proair Hfa] 2 puff INHALATION Q6H PRN 08/20/19 Carbamazepine [Carbamazepine ER] 300 mg PO DAILY 08/20/19 Doxycycline Hyclate 100 mg PO BID 08/20/19 Primary Care Physician: Veronica Rodas DO [Primary Care Provider] - Please follow up with your Primary Care Physician in: one week Patient Instructions: Symptoms of Stroke, Risk Factors for Stroke Disposition: Home Minutes spent on discharge:: 40 Patient Condition:: Stable Medical Necessity - Tobacco Use Smoking Status: Current every day smoker Tobacco Use: Cigarettes Meaningful Use Info Meaningful Use Diagnoses (Choose all that apply): None applicable OBSV E&M: 97678 Observation care discharge
== END 2019-08-20 15:07 | disposition home or self-care (01) ==
LOC: ED 03:17 → PCU 04:16
PROVIDERS: Admitting Provider Hospitalist; Emergency Provider Emergency Medicine; PCP Family Medicine; Visit Provider Student in an Organized Health Care Education/Training Program
DX: R20.0 Anesthesia of skin (principal); R53.1 Weakness; E78.5 Hyperlipidemia, unspecified; R29.701 NIHSS score 1; K21.9 Gastro-esophageal reflux disease without esophagitis; R20.2 Paresthesia of skin; J44.9 Chronic obstructive pulmonary disease, unspecified; I10 Essential (primary) hypertension; F31.9 Bipolar disorder, unspecified; F90.9 Attention-deficit hyperactivity disorder, unspecified type; F17.210 Nicotine dependence, cigarettes, uncomplicated; Z79.899 Other long term (current) drug therapy
CPT/HCPCS: 36415; 70450; 70544; 70549; 70551; 71045; 80048; 80061; 80156; 83036; 83735; 84484; 85025; 85610; 85730; 92610; 93005; 93306; 94762; 99218; 99285; 99406; A9575; G0378

== ENCOUNTER 2020-01-07 15:00 | Emergency (ER) | payer MEDICAID, SELFPAY ==
[2019-08-20 03:58] VITALS: BMI 20.9
[2020-01-07 15:01] VITALS: BP 119/78; PULSE 72; RESP 16; TEMP 36.9; O2SAT 96; BMI 21.4
--- NOTE | 2020-01-07 15:19 | ED.VIS.GEN ---
History of Present Illness Chief Complaint: Sore Throat Informant: Patient Onset: Days - Sore throat started 2 days ago, Weeks - Diarrhea started 1 week ago 3-4 stools that are loose to watery. Context: Sudden Onset Timing: Continuous - Throat is continuous Quality: Pain Location: Throat Current Severity: Mild Maximum Severity: Moderate Worsened by: Nothing Relieved by: Nothing Associated Symptoms: No fever, chills or night sweats. Please read HPI Narrative: Patient is a 59-year-old woman who presents because of sore throat for the past 2 days. She states she had diarrhea that started 1 week ago. She reports 3-4 loose to watery stools. She denies blood or mucus. She denies fever or chills. She denies double vision, blurred vision loss of vision. She does report intermittent headache. She denies rhinorrhea, congestion or postnasal drainage. Denies change in smell or taste. No exposure to anyone with COVID. She has a smoker's cough. The cough is nonproductive. She denies chest pain. She denies shortness of breath or dyspnea on exertion. She denies nausea or vomiting. She denies dysuria, frequency, urgency or hematuria. She has not been on antibiotics in the past month. Prior similar symptoms: No Recent Illness/Hospitalization: No - Past Medical History (1) ADHD Status: Chronic (2) Bipolar disorder Status: Chronic (3) Chronic obstructive pulmonary disease Status: Chronic (4) Depression Status: Chronic (5) Hyperlipidemia Status: Chronic (6) Hypertension Status: Chronic (7) Tobacco dependence Status: Chronic Past Medical History - Allergies and Home Meds Allergies/Adverse Reactions: Allergies morphine Allergy (Verified 01/07/20 15:01) Itching procaine [From Novocain] Allergy (Verified 01/07/20 15:01) Itching Primary Care Physician: Veronica Rodas DO [Primary Care Provider] - Prior records reviewed: Yes Surgical History: cholecystectomy, - - Carpal tunnel repair bilaterally, trigger finger intervention, hysterectomy, cholecystectomy, appendectomy, lumbar back surgery x2, x3. Lives: With Family Smoking Status: Current every day smoker Alcohol: Rare Drugs: None - Family History Maternal Family History: Reports: Diabetes, High Cholesterol, Heart Disease - Patient notes a maternal family history of CAD, CABG x3 required., Hypertension Paternal Family History: Reports: High Cholesterol, Heart Disease - Patient notes paternal family history of CAD, CABG x4 required., Hypertension Review of Systems General: Denies: Chills, Fever, Malaise, Subjective, Sweats Eyes: Denies: Visual changes - bilaterally, Blurred Vision - bilaterally ENT: Denies: Bilateral ear pain, Rhinorrhea, Sore throat Cardiovascular: Denies: Chest pain, Palpitations Respiratory: Reports: Cough. Denies: Dyspnea, Sputum, Dyspnea on exertion Gastrointestinal: Reports: Diarrhea. Denies: Abdominal pain, Nausea, Vomiting, Constipation, Melena, Hematochezia Genitourinary: Denies: Dysuria, Hematuria, Frequency Musculoskeletal: Denies: Myalgias, Arthralgias, Neck pain, Back pain, Swelling, Extremity Pain Skin: Denies: Rash, Wounds Neurological: Reports: Headache. Denies: Weakness, Parasthesia, Numbness Psych: Reports: Depression Endocrine: Denies: Polyuria, Polydipsia Hematologic: Denies: Easy bruising, Easy bleeding Allergy: Denies: Uticaria Physical Exam Vital Signs/Narrative: Vital Signs Temp Pulse Resp BP Pulse Ox 01/07/20 15:01 98.5 F 72 16 119/78 96 Inital Vital Signs reviewed: Yes General: Well nourished, Well developed, No Acute Distress Head: Normocephalic, Atraumatic Eyes: Perrl, EOMI. Negative for: Pale conjunctiva, Scleral icterus ENT: No rhinorrhea, TM's clear, Dry mucous membranes Neck: Supple, Nontender, No lymphadenopathy, No JVD Cardiovascular: Regular rate, Regular rhythm, No murmurs, Normal S1, Normal S2 Respiratory: No distress, CTA bilaterally, Chest nontender Abdomen: Soft, Nontender, Nondistended, Normal bowel sounds Back: Nontender, Normal Inspection Extremities: Nontender, No edema Skin: Normal color, No rash, No Trauma. Negative for: Cyanosis, Diaphoresis, Jaundice Neurological: Alert, Oriented x3, Cranial nerves II-XII grossly intact, Normal Strength, Normal Sensation Psychological: Normal affect, Normal Mood Diagnostic/Tx/Re-eval Laboratory Results 01/07/20 01/07/20 15:37 15:37 WBC 7.9 RBC 4.47 Hgb 13.7 Hct 41.2 MCV 92.2 MCH 30.6 MCHC 33.3 RDW Std Deviation 46.1 H RDW Coeff of Maricarmen 13.7 Plt Count 234 MPV 10.5 Immature Gran % (Auto) 0.500 Neut % (Auto) 53.3 Lymph % (Auto) 34.0 [place] % (Auto) 9.0 Eos % (Auto) 2.9 Baso % (Auto) 0.3 Absolute Neuts (auto) 4.2 Absolute Lymphs (auto) 2.68 Nucleated RBC % 0 Sodium 143 Potassium 4.0 Chloride 113 H Carbon Dioxide 25.0 Anion Gap 5 BUN 11 Creatinine 0.67 Estim Creat Clear Calc 72.39 Est GFR (MDRD) Af Amer 117 Est GFR (MDRD) Non-Af 97 BUN/Creatinine Ratio 16.5 Glucose 86 Calcium 8.9 Blood work is unremarkable. - Medical Decision Making Clinically patient is dehydrated. IV was established and she will receive 1 L of normal saline wide open. Since she does have history of hypertension will obtain basic metabolic panel to assess electrolytes and specifically potassium for hypokalemia and renal function. CBC was obtained to determine if she has neutropenia and lymphocytosis which would support diagnosis of viral infection and may raise suspicion for atypical presentation for COVID infection. ED Disposition - Plan for ED Patient: Disposition: Home or Assisted Living Diagnosis: Diarrhea, Mild dehydration, Sore throat (viral) Instructions: ED Viral Syndrome Referrals: Veronica Rodas DO [Primary Care Provider] - As Needed
[2020-01-07] MEDS: 0.9% Normal Saline 1,000 ML 1000 ML IV (15:39)
[2020-01-07 16:00] LABS: Absolute Lymphocyte Count 2.68 X10^3/uL (0.83-4.51); Absolute Neutrophil Count 4.2 X10^3/uL (2.0-7.7); Basophil# 0.02 X10^3/uL; Basophil% 0.3 % (0-1); Eosinophil# 0.23 X10^3/uL; Eosinophils% 2.9 % (0-5); Hematocrit 41.2 % (37-47); Hemoglobin 13.7 g/dL (12.0-15.0); Lymphocyte # 2.68 X10^3/ul (4.0); Mean Corp Hgb Conc 33.3 g/dL (32-36); Mean Corpuscular Hgb 30.6 pg (27.0-32.0); Mean Corpuscular Volume 92.2 fL (81-99); Mean Platelet Vol. 10.5 fl (6.2-12.0); Monocyte# 0.71 X10^3/uL; NRBC Flagged by Analyzer 0 % (0-5); Neutrophil # 4.21 X10^3/uL (2.7-7.7); Neutrophil % 53.3 % (47-70); Platelet Count 234 K/mm3 (150-450); RBC Distribution Width CV 13.7 % (11.6-14.6); RBC Distribution Width SD 46.1 fl (35.1-43.9); Red Blood Count 4.47 M/mm3 (4.2-5.4); White Blood Count 7.9 K/mm3 (4.4-11.0)
[2020-01-07 16:09] LABS: Anion Gap 5 (5-15); BUN 11 mg/dL (7-18); BUN/Creat Ratio 16.5 RATIO (10-20); Calcium,Total 8.9 mg/dL (8.5-10.1); Chloride 113 mmol/L (98-107); Creatinine, Serum 0.67 mg/dL (0.55-1.02); EST Glomerular Filtration Rate 97 mL/min (>60); Est Glom Filt Rate - Afr Amer 117 mL/min (>60); Estimated Creatinine Clearance 72.39 ml/min; Glucose 86 mg/dL (74-106); Sodium Level 143 mmol/L (136-145)
== END 2020-01-07 17:50 | disposition home or self-care (01) ==
PROVIDERS: Emergency Provider Emergency Medicine; PCP Family Medicine
DX: E86.0 Dehydration (principal); J02.8 Acute pharyngitis due to other specified organisms; R19.7 Diarrhea, unspecified; I10 Essential (primary) hypertension; E78.5 Hyperlipidemia, unspecified; J44.9 Chronic obstructive pulmonary disease, unspecified; F31.9 Bipolar disorder, unspecified; F90.9 Attention-deficit hyperactivity disorder, unspecified type; F17.200 Nicotine dependence, unspecified, uncomplicated; Z79.51 Long term (current) use of inhaled steroids; Z79.899 Other long term (current) drug therapy
CPT/HCPCS: 80048; 85025; 96360; 99284; J7030; A4216

== ENCOUNTER 2021-02-18 10:35 | Emergency (ER) | payer MEDICAID, SELFPAY ==
[2021-02-18 10:36] VITALS: BP 120/89; PULSE 86; RESP 18; TEMP 36.6; O2SAT 98; BMI 23.8
--- NOTE | 2021-02-18 11:00 | EDS_ITS ---
HPI HPI - URI History of Present Illness Chief Complaint: Sore Throat Informant: patient Onset/Context/Timing Onset: Days Context: Gradual Onset Timing: Continuous Current Severity: Mild Maximum Severity: Mild Associated Symptoms Associated Symptoms: Positive for Nasal Congestion, Diarrhea and Nonproductive cough Narrative Narrative: 60-year-old female was vaccinated for Covid with the maternal shot. Grandson was exposed at school and was sent home on Monday. She developed symptoms in the last 3 days of sore throat cough and mild headache. She denies vomiting. Mild loose stools. No hemoptysis. She does have a history of COPD. Prior similar symptoms: Yes Recent Illness/Hospitalization: No ROS ROS ED ROS Narrative Cough, nasal congestion and sore throat. Review of Systems ROS Unobtainable: Denies due to encephalopathy Constitutional Constitutional ED: Denies chills or fever(s) Eyes Eyes: Denies change in vision ENT ENT ED: Reports sore throat; Denies ear pain Cardiovascular Cardiovascular: Denies chest pain or palpitations Respiratory/Chest Respiratory/Chest: Reports cough; Denies dyspnea Gastrointestinal Gastrointestinal: Reports diarrhea; Denies abdominal pain, nausea or vomiting Genitourinary Genitourinary ED: Denies dysuria Musculoskeletal Musculoskeletal: Denies myalgias Integumentary Denies rash Neurologic Neurologic: Reports headache(s) Psychiatric Psychiatric: Denies depression Hematologic/Lymphatic Hematologic/Lymphatic: Denies easy bruising Allergic/Immunologic Allergic/Immunologic ED: Denies urticaria [facility] Medical History Bipolar disorder h/o back surgery Home Medications dextroamphetamine-amphetamine 20 mg PO BID 01/09/19 [History Last Taken 06/29/19 09:30 20 mg] metoprolol succinate 25 mg tablet,extended release 24 hr 25 mg PO DAILY #30 04/02/19 [History Last Taken 06/29/19 09:30 25 mg] rosuvastatin 10 mg tablet 10 mg PO DAILY #30 04/02/19 [History Last Taken 06/29/19 09:30 10 mg] ziprasidone HCl 20 mg capsule 20 mg PO QHS #30 04/02/19 [History Last Taken 06/28/18 22:00 20 mg] albuterol sulfate 2 puff INHALATION Q6H PRN 08/20/19 [History Last Taken Unknown] carbamazepine 300 mg PO DAILY 08/20/19 [History Last Taken Unknown] ibuprofen 800 mg tablet ea PO 05/25/20 [History Last Taken Unknown] levetiracetam 500 mg tablet 500 mg PO BID tab 05/25/20 [History Last Taken Unknown] losartan 25 mg tablet tab PO 05/25/20 [History Last Taken Unknown] magnesium oxide 400 mg (241.3 mg magnesium) tablet tab PO 05/25/20 [History Last Taken Unknown] nitroglycerin 0.4 mg sublingual tablet 0.4 mg SUBLINGUAL tab 05/25/20 [History Last Taken Unknown] omeprazole 20 mg capsule,delayed release 20 mg PO DAILY cap 05/25/20 [History Last Taken Unknown] vilazodone 40 mg tablet ea PO 05/25/20 [History Last Taken Unknown] Allergy/AdvReac Type Severity Reaction Status Date / Time morphine Allergy Itching Verified 02/18/21 10:38 procaine [From Novocain] Allergy Itching Verified 02/18/21 10:38 Family History Father Hypertension Myocardial infarction CVA (cerebral vascular accident) Mother CVA (cerebral vascular accident) Hypertension Myocardial infarction Social History household members: other details: grandson housing: house Smoking Status: Light Smoker (<10/day) Tobacco: How many years used: 35 alcohol intake: never what type of physical activity do you participate in: walking do you feel safe at home: Yes EXAM Physical Exam Narrative Exam Narrative: White female no acute distress. Vital signs stable afebrile. HEENT exam unremarkable. Lungs clear to auscultation bilaterally. No rales rhonchi or wheezing. Equal symmetrical. No distress. Heart regular rhythm no murmur. Abdomen soft nontender normal bowel sounds no peritoneal signs. Moving all 4 extremities. Nontender no edema. Benign exam. Const Vital Signs: 02/18/21 10:36 Temperature 98 F Temperature Source Temporal Pulse Rate 86 Respiratory Rate 18 Blood Pressure 120/89 H Blood Pressure Mean 99 Pulse Ox 98 Oxygen Delivery Method Room Air Positive well nourished and well developed; Negative for obese, cachectic or contractures General Appearance ED: well developed and NAD; Negative for cachectic or contractures Nutritional Appearance: Negative for cachectic or obese HEENT normocephalic and atraumatic Eyes PERRL and EOMs intact bilaterally Neck no lymphadenopathy, supple, no meningeal signs and no JVD General: Negative for anterior neck swelling Resp normal respiratory effort and clear to auscultation bilaterally Auscultation: Negative for rales, rhonchi or wheezes Cardio S1 normal heart sound, S2 normal heart sound and no murmurs Rate: regular rate Rhythm: regular rhythm GI non-tender, non-distended and no masses Inspection: Negative for abdominal distention Auscultation: normoactive bowel sounds; Negative for hyperactive bowel sounds Palpation: soft; Negative for tender or guarding Back/Spine no CVA tenderness Extremity normal to inspection; Negative for full ROM General Extremety ED: Negative for cyanosis or tenderness General Extremity: Negative for cyanosis Neuro oriented x3 Sensorium / Orientation: alert, oriented to person, oriented to place and oriented to time; Negative for orientation impaired, lethargic or stuporous Motor Exam: strength 5/5 throughout Psych mental status grossly normal Skin Lesions: no lesions Rashes: no rashes MDM MDM MDM Narrative Medical decision making narrative: Middle-aged female Lab Data Attestation: I reviewed the patient's lab results. Discharge Plan Triage Chief Complaint: Sore Throat ED Provider: Gómez Juarez Dx/Rx/DC Orders Clinical Impression: Viral URI Instructions: ED URI, Viral, No Abx (Adult) Prescriptions: No Action rosuvastatin 10 mg tablet 10 mg PO DAILY Qty: 30 RF: 0 metoprolol succinate 25 mg tablet extended release 24 hr 25 mg PO DAILY Qty: 30 RF: 0 ziprasidone HCl 20 mg capsule 20 mg PO QHS Qty: 30 RF: 0 omeprazole 20 mg capsule,delayed release(DR/EC) 20 mg PO DAILY RF: 0 nitroglycerin 0.4 mg tablet, sublingual 0.4 mg SUBLINGUAL RF: 0 levetiracetam 500 mg tablet 500 mg PO BID RF: 0 losartan 25 mg tablet PO RF: 0 vilazodone 40 mg tablet PO RF: 0 magnesium oxide 400 mg (241.3 mg magnesium) tablet PO RF: 0 ibuprofen 800 mg tablet PO RF: 0 dextroamphetamine-amphetamine 20 MG capsule,extended release 24hr 20 mg PO BID RF: 0 albuterol sulfate 1 PUFF inhaler 2 puff INHALATION Q6H PRN RF: 0 carbamazepine 300 MG capsule, ER multiphase 12 hr 300 mg PO DAILY RF: 0 Primary Care Provider: Veronica Rodas Referrals: Veronica Rodas DO [Primary Care Provider] - As Needed Activity Restrictions/Additional Instructions: Hospital will notify you by text your Covid results in the next 1 to 2 hours. Disposition Disposition: Home, Self Care
[2021-02-18 11:22] VITALS: BP 124/88; PULSE 88; RESP 16; O2SAT 97
== END 2021-02-18 11:52 | disposition home or self-care (01) ==
PROVIDERS: Emergency Provider Emergency Medicine; PCP Family Medicine
DX: J06.9 Acute upper respiratory infection, unspecified (principal); J44.9 Chronic obstructive pulmonary disease, unspecified; F31.9 Bipolar disorder, unspecified; Z79.51 Long term (current) use of inhaled steroids; Z79.899 Other long term (current) drug therapy; F17.210 Nicotine dependence, cigarettes, uncomplicated
CPT/HCPCS: 87426; 99282

== ENCOUNTER → 2021-04-19 10:20 | Outpatient (CLI) | payer MEDICAID, SELFPAY ==
--- NOTE | 2021-04-19 10:32 | MRI_ITS ---
STUDY: MRI CERVICAL SPINE WITHOUT CONTRAST REASON FOR EXAM: Female, 60 years old. Cervicalgia TECHNIQUE: Standardized fat and water weighted pulse sequences were obtained in the sagittal and axial planes. COMPARISON: None FINDINGS: Normal foramen magnum and brainstem-cervical cord junction. Normal cervical lordosis. C2-3: There is minimal disc space narrowing and endplate spondylosis. There is no significant disc herniation, central canal or foraminal stenosis C3-4: There is mild disc space narrowing and endplates spondylosis. Minimal anterolisthesis. Minimal disc osteophyte complex without significant central canal stenosis. Uncovertebral and facet arthropathy with mild right and moderate left foraminal stenosis. C4-5: There is mild disc space narrowing and endplate spondylosis. There is no significant disc herniation, central canal or foraminal stenosis . C5-6: There is moderate disc space narrowing and endplates spondylosis. Moderate disc osteophyte complex and dorsal ligamentous buckling with severe central canal stenosis. Uncovertebral and facet arthropathy with mild right and moderate left foraminal stenosis. C6-7: There is moderate disc space narrowing and endplates spondylosis. Mild disc osteophyte complex with moderate central canal stenosis. Uncovertebral and facet arthropathy with mild right and moderate left foraminal stenosis. C7-T1: There is minimal disc space narrowing and endplate spondylosis. There is no significant disc herniation, central canal or foraminal stenosis MRI/Spine Cervical (Routine) IMPRESSION: C3/C4: Moderate left foraminal stenosis. C5/C6: Severe central canal stenosis. Moderate left foraminal stenosis. C6/C7: Moderate central canal stenosis. Moderate left foraminal stenosis. Electronically Signed: Sim Segal MD at 8:10 EST Tel , Service support ,
[2021-04-19 12:02] LABS: Hematocrit 39.2 % (37-47); Hemoglobin 13.3 g/dL (12.0-15.0); Mean Corp Hgb Conc 33.9 g/dL (32-36); Mean Corpuscular Hgb 30.2 pg (27.0-32.0); Mean Corpuscular Volume 89.1 fL (81-99); Platelet Count 270 K/mm3 (150-450); RBC Distribution Width CV 13.5 % (11.6-14.6); RBC Distribution Width SD 44.3 fl (35.1-43.9); White Blood Count 10.2 K/mm3 (4.4-11.0)
[2021-04-19 12:38] LABS: AST(SGOT) 20 U/L (15-37); Alanine Aminotransfer ALT/SGPT 19 U/L (13-56); Albumin, Serum 3.7 g/dL (3.2-5.0); Alkaline Phosphatase 77 U/L (45-117); Anion Gap 4 (5-15); BUN 11 mg/dL (7-18); BUN/Creat Ratio 15.2 RATIO (10-20); Calcium,Total 9.1 mg/dL (8.5-10.1); Chloride 111 mmol/L (98-107); Creatinine, Serum 0.72 mg/dL (0.55-1.02); EST Glomerular Filtration Rate 87 mL/min (>60); Est Glom Filt Rate - Afr Amer 106 mL/min (>60); Globulin 3.6 g/dL (2.2-4.2); Glucose 93 mg/dL (74-106); Potassium 4.4 mmol/L (3.5-5.1); Protein, Total 7.3 g/dL (6.4-8.2); Sodium Level 138 mmol/L (136-145)
== END ==
PROVIDERS: PCP Family Medicine; Visit Provider Psychiatry & Neurology Neurology
DX: M54.2 Cervicalgia (principal)
CPT/HCPCS: 36415; 72141; 80053; 85027